=== PATIENT | female | born 1950 | race Caucasian/White ===

== ENCOUNTER 2024-07-11 13:03 | Inpatient (IN) | payer MEDICARE, OTHER, SELFPAY ==
[2024-07-11] VITALS (24 sets, daily range): BP systolic 97–148; BP diastolic 53–75; PULSE 56–74; TEMP 36.6–36.7; O2SAT 82–100; BMI 19.7; BMI 18.4
--- NOTE | 2024-07-11 13:28 | XR_ITS ---
[address] [address] Patient Name: LIZETH DAY MRN: [id number] date: 1950 Sex: F Assigned Patient Location: ER Current Patient Location: ER Accession/Order Number: [id number] Exam Date: 07/11/2024 14:23 Report Date: 07/11/2024 15:38 At the request of: OLIVIA GROSS Procedure: XR elbow RT min 3V PROCEDURE: XR elbow RT min 3V COMPARISON: None. HISTORY: fall FINDINGS: BONES:Acute fracture of the olecranon process of the proximal ulna with displacement up to 1.5 cm. SOFT TISSUES:Extensive soft tissue swelling EFFUSION:None visible. OTHER: Negative. XR/XR elbow RT min 3V IMPRESSION: Acute displaced fracture of the olecranon process Electronically authenticated by: RADHA WHITE Date: 07/11/2024 15:38
--- NOTE | 2024-07-11 13:28 | CT_ITS ---
The [address] [address] Patient Name: LIZETH DAY MRN: [id number] date: 1950 Sex: F Assigned Patient Location: ER Current Patient Location: ER Accession/Order Number: [id number] Exam Date: 07/11/2024 14:23 Report Date: 07/11/2024 15:06 At the request of: OLIVIA GROSS Procedure: CT pelvis wo con Exam Type: CT PELVIS Exam Date and Time: 07/11/2024 2:23 PM EST Indication: 74 years old Female with pain following trauma Comparison: Radiograph same date, prior CT scan 11/20/2022 TECHNIQUE: Axial CT images of the pelvic were obtained without intravenous contrast. Coronal and sagittal reformatted images were obtained. Dose reduction techniques were achieved by using automated exposure control and/or adjustment of mA and/or kV according to patient size and/or use of iterative reconstruction technique. FINDINGS: The bones are diffusely osteopenic, which limits detection of subtle nondisplaced fracture. There is an acute nondisplaced comminuted right acetabular fracture with intra-articular extension and involving the anterior column. The fracture dissipates inferiorly into the right superior pubic ramus. No significant cortical step off. No other acute displaced fracture is evident. There is linear sclerosis identified within the left iliac wing as well as the left pubic symphysis, these could potentially reflect fibrous dysplasia or stress response or remote trauma. The pubic symphysis and sacroiliac joints appear congruent. There is a chronic appearing sacral fracture at the S4 segment. Chronic L5 compression fracture with prior vertebroplasty. Mild bilateral hip osteoarthritis. Limited evaluation of the pelvic viscera is without acute or suspicious abnormality. CT/CT pelvis wo con IMPRESSION: 1. Acute comminuted nondisplaced right acetabular fracture extending inferiorly into the superior pubic ramus 2. Chronic fracture deformity of the sacrum at the S4 segment. 3. Linear sclerosis involving the left superior pubic ramus and left iliac wing could reflect changes of remote trauma, fibrous dysplasia or less likely stress response. Electronically authenticated by: TATE LEY Date: 07/11/2024 15:06
--- NOTE | 2024-07-11 13:28 | CT_ITS ---
The [address] [address] Patient Name: LIZETH DAY MRN: [id number] date: 1950 Sex: F Assigned Patient Location: ER Current Patient Location: ER Accession/Order Number: [id number] Exam Date: 07/11/2024 14:23 Report Date: 07/11/2024 14:56 At the request of: OLIVIA GROSS Procedure: CT cervical spine wo con EXAM: CT head/brain wo con, CT cervical spine wo con HISTORY: fall, syncope COMPARISON: CT head 09/23/2012. TECHNIQUE: Axial noncontrast CT imaging of the head and cervical spine was performed with coronal and sagittal reformats FINDINGS: CT head Calvarium/skull base: No evidence of acute fracture or destructive lesion. Paranasal sinuses: No air fluid levels. Brain: No acute intracranial hemorrhage. No acute large vascular territory infarct. No mass lesion or mass effect. No hydrocephalus. CT cervical spine Alignment: Slight reversal of normal cervical lordosis, degenerative in nature. Vertebrae: Vertebral body heights are maintained. No fracture. Probable vertebral body hemangioma involving C7. Craniocervical junction: No focal abnormality. Degenerative changes: Bilaterally mild degenerative changes greater involving the lower cervical spine with associated disc height loss and anterior osteophytic spurring. There is advanced bilateral uncovertebral arthropathy at C5-C6 and moderate uncovertebral arthropathy at C6-C7. There is associated advanced bilateral foraminal stenosis at C5-C6. Small posterior disc osteophytic complexes are present with mild canal stenosis. Additional Comments: Visualized portions of the upper lungs are clear. Vascular sclerosis. CT/CT cervical spine wo con IMPRESSION: 1. No acute intracranial process. 2. No acute fracture or malalignment of the cervical spine. Electronically authenticated by: PATI LINK Date: 07/11/2024 14:56
--- NOTE | 2024-07-11 13:28 | CT_ITS ---
The [address] [address] Patient Name: LIZETH DAY MRN: [id number] date: 1950 Sex: F Assigned Patient Location: ER Current Patient Location: ER Accession/Order Number: [id number] Exam Date: 07/11/2024 14:23 Report Date: 07/11/2024 14:56 At the request of: OLIVIA GROSS Procedure: CT head/brain wo con EXAM: CT head/brain wo con, CT cervical spine wo con HISTORY: fall, syncope COMPARISON: CT head 09/23/2012. TECHNIQUE: Axial noncontrast CT imaging of the head and cervical spine was performed with coronal and sagittal reformats FINDINGS: CT head Calvarium/skull base: No evidence of acute fracture or destructive lesion. Paranasal sinuses: No air fluid levels. Brain: No acute intracranial hemorrhage. No acute large vascular territory infarct. No mass lesion or mass effect. No hydrocephalus. CT cervical spine Alignment: Slight reversal of normal cervical lordosis, degenerative in nature. Vertebrae: Vertebral body heights are maintained. No fracture. Probable vertebral body hemangioma involving C7. Craniocervical junction: No focal abnormality. Degenerative changes: Bilaterally mild degenerative changes greater involving the lower cervical spine with associated disc height loss and anterior osteophytic spurring. There is advanced bilateral uncovertebral arthropathy at C5-C6 and moderate uncovertebral arthropathy at C6-C7. There is associated advanced bilateral foraminal stenosis at C5-C6. Small posterior disc osteophytic complexes are present with mild canal stenosis. Additional Comments: Visualized portions of the upper lungs are clear. Vascular sclerosis. CT/CT head/brain wo con IMPRESSION: 1. No acute intracranial process. 2. No acute fracture or malalignment of the cervical spine. Electronically authenticated by: PATI LINK Date: 07/11/2024 14:56
--- NOTE | 2024-07-11 13:28 | ECG_ITS ---
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
--- NOTE | 2024-07-11 13:44 | ED_ITS ---
HPI HPI - General Adult General Chief complaint: Extremity Injury, Lower Stated complaint: FALL Time Seen by Provider: 07/11/24 13:19 Source: patient Mode of arrival: Wheelchair History of Present Illness HPI narrative: Patient is a 74-year-old female who presents to the emergency department with her after a fall near her home in [place] where she is a resident. She states that she slipped outside of her home onto her right hip and arm. She complains of significant pain and swelling to the right elbow. She does not take blood thinners. She is right-hand dominant. She does not believe she hit her head. She states after her stood her up, she was able to walk a block home to her residence. She reports right hip pain. She states after she stood up and ambulated, she passed out, and then had another syncopal episode when she got home. She had no additional injuries from the syncopal episode. She did not feel dizzy prior to falling and does not feel dizzy now. She has not had any upper respiratory illness, chest pain, shortness of breath. No medications taken for pain prior to arrival Related Data Home Medications ?Medication ?Instructions ?Recorded ?Confirmed sertraline 100 mg tablet mg 07/11/24 simvastatin 20 mg tablet mg 07/11/24 Allergies Allergy/AdvReac Type Severity Reaction Status Date / Time No Known Drug Allergies Allergy Verified 07/11/24 13:16 Opioid HPI Opioid Management Most Recent Opioid Data: Last [facility] Pain Assessment 07/11/24 15:32 Review of Systems ROS Constitutional Denies: fever or chills Ears, nose, mouth, and throat Denies: throat pain or nasal congestion Cardiovascular Denies: chest pain Respiratory Denies: shortness of breath or cough Gastrointestinal Denies: nausea or vomiting Musculoskeletal Reports: extremity pain, extremity swelling, joint pain and limited range of motion; Denies: back pain or neck pain Integumentary/Breast Denies: rash Neurological Denies: numbness in extremities or weakness in extremities Hematologic/Lymphatic Denies: easy bruising or easy bleeding PFSH PFSH Social History Little interest or pleasure in doing things: not at all Feeling down, depressed, or hopeless: not at all Exam Narrative Exam Narrative: Gen.: Awake, alert, in no distress Head: Normocephalic, atraumatic ENT: Moist mucous membranes, C-spine nontender with no facial or dental injury Respiratory: No respiratory distress, lungs clear bilaterally Cardio: Regular rate and rhythm Gastrointestinal: Abdomen is soft, nondistended and nontender to palpation; pelvis is stable and hips are nontender Extremities: Tenderness and swelling over the right proximal forearm just distal to the right elbow joint with some tenderness and swelling of the posterior olecranon of the right elbow. Limited flexion and extension at the elbow. No tenderness of the distal forearm, wrist or hand. 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 Patient is able to move the fingers of the right hand, no evidence of nerve deficit. No tenderness of the right proximal humerus or shoulder. Diffuse tenderness of the right lateral hip and proximal thigh. No bony tenderness of the right knee, lower leg or foot. Psych: Normal mood and affect Neuro: No focal neuro deficit Skin: Warm, dry, intact Constitutional Vital Signs, click to edit/add: Last Vital Signs Temp 98.1 F 07/11/24 13:16 Pulse 07/11/24 13:16 Resp 16 07/11/24 13:16 BP 141/75 07/11/24 14:13 Pulse Ox 95 07/11/24 14:15 O2 Del Method Room Air 07/11/24 14:15 Course Vital Signs Vital signs: Vital Signs Temperature 98.1 F 07/11/24 13:16 Pulse Rate 07/11/24 13:16 Respiratory Rate 16 07/11/24 13:16 Blood Pressure 131/59 07/11/24 13:16 Pulse Oximetry 98 07/11/24 13:16 Oxygen Delivery Method Room Air 07/11/24 13:16 Temperature 98.1 F 07/11/24 13:16 Pulse Rate 69 07/11/24 13:16 Respiratory Rate 16 07/11/24 13:16 Blood Pressure 141/75 07/11/24 14:13 Pulse Oximetry 95 07/11/24 14:15 Oxygen Delivery Method Room Air 07/11/24 14:15 Medical Decision Making MDM Narrative Medical decision making narrative: Patient was medicated with IV fentanyl and Zofran for pain control as well as IV Norflex. She is resting more comfortably and is hemodynamically stable with stable vital signs. Due to her syncopal episode at the time of the fall, she had an EKG, lab studies including cardiac enzymes and coagulation studies. Her EKG shows normal sinus rhythm, she has no complaints of dizziness or chest pain in the emergency department. Her workup is otherwise unremarkable. Additional pain medication given, CTs of the head and C-spine are unremarkable. X-rays of the right elbow show the patient has a fracture of the olecranon, CT of the pelvis shows the patient has an acute comminuted nondisplaced fracture of the acetabulum extending into the superior pubic ramus. I discussed this with Dr. Mujica for orthopedics who reviewed the x-rays of the elbow and feels the patient should have surgery for her right elbow, he can do this procedure tomorrow and the patient will be admitted to the hospitalist, Dr. Morrison for further evaluation and treatment. Patient and are in agreement with treatment plan, patient is not anticoagulated, I relayed to hospitalist that orthopedics prefers that the patient not be given any blood thinners overnight. Her ring was removed from her right hand prior to splinting with a posterior splint of the right upper extremity. Patient is neurovascularly intact at time of admission, Montalvo catheter placed for comfort. SUPERVISED APC VISIT, PHYSICIAN ATTESTATION: Based on the medical record the care appears appropriate. ? Medical Records Medical records reviewed: Yes I reviewed the patient's medical records Lab Data Lab results reviewed: Yes I reviewed the patient's lab results Labs: Lab Results 07/11/24 Range/Units 13:50 WBC 8.3 (4.0-11.0) 10^3/uL RBC 4.61 (4.20-5.40) 10^6/uL Hgb 12.9 (12.0-16.0) g/dL Hct 40.0 (36.0-48.0) % MCV 86.8 (81.0-99.0) fL MCH 28.0 (26.7-34.0) pg MCHC 32.3 (29.9-35.2) g/dL RDW 13.9 (11.0-15.0) % Plt Count 188 (150-450) 10^3/uL MPV 10.5 (9.5-13.5) fL Seg Neuts % (Manual) 86.0 H (43.0-75.0) Band Neutrophils % 2.0 (0-5) % Lymphocytes % (Manual) 10.0 L (20.5-60.0) % Monocytes % (Manual) 2.0 (1.7-12.0) % Eosinophils % (Manual) 0.0 L (0.9-7.0) % Basophils % (Manual) 0.0 L (0.2-2.0) % Neutrophils # (Manual) 7.13 H (1.4-6.5) 10^3/uL Band Neutrophils # 0.2 (0.0-0.3) 10^3/uL Lymphocytes # (Manual) 0.83 L (1.20-3.80) 10^3/uL Monocytes # (Manual) 0.16 L (0.30-0.80) 10^3/uL Eosinophils # (Manual) 0.00 (0.00-0.70) 10^3/uL Basophils # (Manual) 0.00 (0.00-0.10) 10^3/uL PT 10.9 (9.0-11.6) sec INR 1.03 Sodium 137 (136-145) mmol/L Potassium 4.0 (3.5-5.1) mmol/L Chloride 102 (98-107) mmol/L Carbon Dioxide 27.4 (21.0-32.0) mmol/L Anion Gap 11.6 BUN 16.0 (7.0-18.0) mg/dL Creatinine 0.85 (0.55-1.02) mg/dL Est GFR ( Amer) >60 (>=60 mL/min/1.73m^2) Est GFR (Non-Af Amer) >60 (>=60 mL/min/1.73m^2) BUN/Creatinine Ratio 18.8 Glucose 94 (74-106) mg/dL Calcium 8.9 (8.5-10.1) mg/dL Troponin I High Sens 5.1 (4.0-51.3) pg/mL Imaging Data CT scan - head: Attestation: I have reviewed the pertinent imaging results. Radiologist's impression: ITS Impressions Cervical Spine CT 07/11/24 13:28 IMPRESSION: 1. No acute intracranial process. 2. No acute fracture or malalignment of the cervical spine. Electronically authenticated by: PATI LINK Date: 07/11/2024 14:56 Elbow X-Ray 07/11/24 13:28 IMPRESSION: Acute displaced fracture of the olecranon process Electronically authenticated by: RADHA WHITE Date: 07/11/2024 15:[address] 07/11/24 13:28 IMPRESSION: 1. No acute intracranial process. 2. No acute fracture or malalignment of the cervical spine. Electronically authenticated by: PATI LINK Date: 07/11/2024 14:[address] 07/11/24 13:28 IMPRESSION: 1. Acute comminuted nondisplaced right acetabular fracture extending inferiorly into the superior pubic ramus 2. Chronic fracture deformity of the sacrum at the S4 segment. 3. Linear sclerosis involving the left superior pubic ramus and left iliac wing could reflect changes of remote trauma, fibrous dysplasia or less likely stress response. Electronically authenticated by: TATE LEY Date: 07/11/2024 15:06 Femur X-Ray 07/11/24 13:44 IMPRESSION: No acute fracture Electronically authenticated by: RADHA WHITE Date: 07/11/2024 15:12 ECG Data Attestation: I personally reviewed and interpreted this ECG as follows: (Normal sinus rhythm at a rate of 63 with sinus arrhythmia, no acute ST elevation or ectopy. EKG reviewed by attending physician) Discharge Plan Discharge Chief Complaint: Extremity Injury, Lower Clinical Impression: Fall, Fracture of right olecranon process, Closed right acetabular fracture, Syncope Patient Disposition: Admitted As Inpatient Time of Disposition Decision: 16:09 Condition: Good Prescriptions / Home Meds: No Action sertraline 100 mg tablet simvastatin 20 mg tablet Print Language: Egyptian Referrals: YULISSA HOOKS [Primary Care Provider] - 1 week
--- NOTE | 2024-07-11 13:44 | XR_ITS ---
The [address] [address] Patient Name: LIZETH DAY MRN: [id number] date: 1950 Sex: F Assigned Patient Location: ER Current Patient Location: ER Accession/Order Number: [id number] Exam Date: 07/11/2024 14:23 Report Date: 07/11/2024 15:12 At the request of: OLIVIA GROSS Procedure: XR femur RT 2V PROCEDURE: XR femur RT 2V COMPARISON: None. HISTORY: fall FINDINGS: BONES:No fracture, acute abnormality, or significant arthropathy. SOFT TISSUES:Negative. No visible soft tissue swelling. EFFUSION:None visible. OTHER: Negative. XR/XR femur RT 2V IMPRESSION: No acute fracture Electronically authenticated by: RADHA WHITE Date: 07/11/2024 15:12
[2024-07-11] MEDS: FENTANYL CITRATE/PF 100 MCG/2 ML VIAL 75 MCG IV (14:05)
[2024-07-11] MEDS: ONDANSETRON PF 4 MG/2 ML VIAL IV (14:07)
[2024-07-11] MEDS: ORPHENADRINE 60 MG/ 2 ML VIAL IV (14:07)
[2024-07-11 14:22] LABS: Hemoglobin 12.9 g/dL (12.0-16.0); Mean Corpuscular HGB Conc 32.3 g/dL (29.9-35.2); Mean Corpuscular Volume 86.8 fL (81.0-99.0); Mean Platelet Volume 10.5 fL (9.5-13.5); Platelet Count 188 10^3/uL (150-450); Red Blood Count 4.61 10^6/uL (4.20-5.40); Red Cell Distribution Width 13.9 % (11.0-15.0); White Blood Count 8.3 10^3/uL (4.0-11.0)
[2024-07-11 14:36] LABS: INR 1.03; Prothrombin Time 10.9 sec (9.0-11.6)
[2024-07-11 14:52] LABS: Anion Gap 11.6; BUN Creatinine Ratio 18.8; Calcium 8.9 mg/dL (8.5-10.1); Carbon Dioxide 27.4 mmol/L (21.0-32.0); Chloride 102 mmol/L (98-107); Estimated GFR (African America >60 (>=60 mL/min/1.73m^2); Estimated GFR (Non-African Ame >60 (>=60 mL/min/1.73m^2); Glucose 94 mg/dL (74-106); Sodium 137 mmol/L (136-145); Troponin I High Sensitivity 5.1 pg/mL (4.0-51.3)
[2024-07-11 14:59] LABS: Band Neutrophils Absolute 0.2 10^3/uL (0.0-0.3); Lymphocytes Absolute Manual 0.83 10^3/uL (1.20-3.80); Monocytes Absolute Manual 0.16 10^3/uL (0.30-0.80); Segmented Neut Absolute Manual 7.13 10^3/uL (1.4-6.5)
[2024-07-11] MEDS: HYDROMORPHONE HCL 0.5 MG/0.5 ML SYRINGE IV (15:32)
--- NOTE | 2024-07-11 16:02 | XR_ITS ---
The [address] [address] Patient Name: LIZETH DAY MRN: [id number] date: 1950 Sex: F Assigned Patient Location: ER Current Patient Location: MS Accession/Order Number: [id number] Exam Date: 07/11/2024 16:27 Report Date: 07/11/2024 20:56 At the request of: OLIVIA GROSS Procedure: XR chest 1V EXAM: XR chest 1V HISTORY: Pre-op COMPARISON: None. TECHNIQUE: AP chest x-ray. FINDINGS: Cardiac size appears within normal limits. Trachea is midline. No mediastinal widening. Calcific nodule in the left upper lobe. No airspace consolidation, pneumothorax or effusion. Multiple healed right rib fracture deformities are noted. XR/XR chest 1V IMPRESSION: No acute cardiopulmonary processes identified. Electronically authenticated by: BRYAN FRAIRE Date: 07/11/2024 20:56
--- NOTE | 2024-07-11 16:33 | PC.NURSE ---
Right elbow swollen and ecchymotic. God radial pulse. ice and elevation
--- NOTE | 2024-07-11 17:58 | P.HP_ITS ---
HPI H&P: HPI History of Present Illness Chief complaint: FALL RT OLECRANON FRACTURE RT ACETABULAR FRACTURE Narrative: Patient presented to emergency room after 2 falls, she fell and hurt her arm, then walking through her house had increasing her pain may have had a lightheaded spell at that time did not lose consciousness that she is certain of, she thinks the reaction was more to the increase in her pain. She presented emergency room and found to have acetabular fracture nondisplaced and olecranon fracture that will require surgical intervention I saw patient up in the medical surgical floor, resting comfortably in bed, no significant pain at the time. She does not have a significant past medical history other than hypercholesterolemia and depression, no history of heart issues in the past no strokes in the past, did have a fracture of her left arm in the past without difficulty Opioid HPI Opioid Management Most Recent Pain and Opioid Data: Last Pain Scale 6 07/11/24 18:00 07/11/24 Last Pain Assessment 07/11/24 18:00 Last MAR Pain Assessment 07/11/24 15:32 Last ORT Total Score 1 07/11/24 17:52 07/11/24 Last ORT Risk Category Low Risk 07/11/24 17:52 07/11/24 PFSH PFS Medical History (Updated 07/11/24 @ 19:31 by Sandrine York RN) Hyperlipidemia ?E78.5 - Hyperlipidemia, unspecified (ICD-10) Osteoarthritis ?M19.90 - Unspecified osteoarthritis, unspecified site (ICD-10) Depression ?F32.A - Depression, unspecified (ICD-10) Surgical History (Updated 07/11/24 @ 19:31 by Sandrine York RN) H/O kyphoplasty ?Z98.890 - Other specified postprocedural states (ICD-10) Family History (Updated 07/11/24 @ 18:04 by Sandrine York RN) Father Family history of cancer Family history of hypertension Grandmother Family history of diabetes mellitus Social History (Updated 07/11/24 @ 18:04 by Sandrine York RN) Within the past year, how often did you have a drink containing alcohol: never Score interpretation: A score less than 3 is consistent with normal alcohol consumption. Smoking status: Never smoker Non-prescribed substance use: denies use Highest level of school completed/degree received: some college, no degree Little interest or pleasure in doing things: not at all Feeling down, depressed, or hopeless: not at all Meds Home Medications and Allergies Home Medications ?Medication ?Instructions ?Recorded ?Confirmed ?Type sertraline 100 mg tablet 100 mg PO .at bedtime 07/11/24 07/11/24 History sertraline 25 mg tablet 25 mg PO .at bedtime 07/11/24 07/11/24 History simvastatin 20 mg tablet 20 mg PO .at bedtime 07/11/24 07/11/24 History Allergies Allergy/AdvReac Type Severity Reaction Status Date / Time No Known Drug Allergies Allergy Verified 07/11/24 13:16 Exam Constitutional Vital Signs, click to edit/add: Last Vital Signs Temp 98.1 F 07/11/24 13:16 Pulse 70 07/11/24 17:20 Resp 22 H 07/11/24 17:20 BP 134/66 07/11/24 15:18 Pulse Ox 97 07/11/24 17:20 O2 Del Method Room Air 07/11/24 14:15 Documenting provider has reviewed patient's vital signs: yes Common normals: no apparent distress, average body habitus, oriented x3, no limitations, healthy appearing, alert and well nourished Chest Common normals: inspection of chest normal Respiratory Common normals: normal respiratory effort and no retractions Cardio Common normals: regular rate and regular rhythm GI Common normals: Normal to inspection, nondistended, normoactive bowel sounds present Extremity Common normals: abnormal to inspection (Splint on right arm) Results Labs Labs: Short CBC 07/11/24 Range/Units 13:50 WBC 8.3 (4.0-11.0) 10^3/uL Hgb 12.9 (12.0-16.0) g/dL Hct 40.0 (36.0-48.0) % Plt Count 188 (150-450) 10^3/uL BMP 07/11/24 13:50 Sodium 137 Potassium 4.0 Chloride 102 Carbon Dioxide 27.4 BUN 16.0 Creatinine 0.85 Glucose 94 Calcium 8.9 Assessment and Plan Assessment and Plan (1) Fracture of right olecranon process: (2) Closed right acetabular fracture: (3) Syncope: Plan Admission findings: Patient status post fall and near syncopal episode, this is resulted in olecranon fracture and a acetabular fracture-surgical repair needed for the olecranon fracture Olecranon fracture and acetabular fracture-plan per orthopedics Near syncopal episode, she does not feel that she completely lost consciousness, she felt it was due to the severity of the onset of her pain and she was getting into her house, she feels like the low back pain was much increased after that fall, will monitor patient on telemetry Hypercholesterolemia continue with home medications Depression-continue with home medications Admission status: Syncopal episode, may require monitoring, as well as surgical intervention for olecranon fracture. For 2 midnights, inpatient status. Urinary Catheter Management Urinary Catheter Management Urethral: Cath placed during this visit: yes Urethral indwelling: No Insertion date: 07/11/24 Insertion time: 16:20
[2024-07-11 20:24] LABS: Alanine Aminotransferase 45 U/L (14-59); Albumin Globulin Ratio 1.2; Albumin Level 3.8 g/dL (3.4-5.0); Alkaline Phosphatase 52 U/L (46-116); Aspartate Amino Transferase 34 U/L (15-37); Bilirubin Direct 0.1 mg/dL (0.0-0.2); Bilirubin Total 0.2 mg/dL (0.2-1.0); Globulin 3.3 g/dL; Total Protein 7.1 g/dL (6.4-8.2)
[2024-07-11] MEDS: ACETAMINOPHEN 500 MG TABLET 1000 MG PO (22:29)
[2024-07-11] MEDS: SERTRALINE HCL 50 MG TABLET 25 MG PO (22:29)
[2024-07-11] MEDS: ATORVASTATIN CALCIUM 10 MG TABLET PO (22:30)
[2024-07-11] MEDS: LACTATED RINGER'S SOLUTION 1,000 ML 50 ML IV (22:30)
[2024-07-11] MEDS: SERTRALINE HCL 100 MG TABLET PO (22:30)
[2024-07-12] VITALS (27 sets, daily range): BP systolic 108–154; BP diastolic 62–81; PULSE 49–77; TEMP 36.4–36.8; O2SAT 93–97
[2024-07-12] MEDS: ACETAMINOPHEN 500 MG TABLET 1000 MG PO ×2 (04:34→23:47)
[2024-07-12 06:14] LABS: Basophils Percent Auto 0.3 % (0.2-2.0); Eosinophils Percent Auto 0.3 % (0.9-7.0); Hematocrit 38.2 % (36.0-48.0); Hemoglobin 12.3 g/dL (12.0-16.0); Immature Granulocytes Abs Auto 0.01 10^3/uL (0.00-0.03); Immature Granulocytes Pct Auto 0.2 % (0.0-0.5); Lymphocytes Absolute Auto 0.9 10^3/uL (1.2-3.8); Mean Corpuscular HGB Conc 32.2 g/dL (29.9-35.2); Mean Corpuscular Hemoglobin 27.9 pg (26.7-34.0); Mean Corpuscular Volume 86.6 fL (81.0-99.0); Mean Platelet Volume 10.5 fL (9.5-13.5); Monocytes Absolute Auto 0.5 10^3/uL (0.3-0.8); Monocytes Percent Auto 7.6 % (1.7-12.0); Neutrophils Absolute Auto 4.7 10^3/uL (1.4-6.5); Neutrophils Percent Auto 77.6 % (43.0-75.0); Platelet Count 145 10^3/uL (150-450); Red Blood Count 4.41 10^6/uL (4.20-5.40); Red Cell Distribution Width 14.2 % (11.0-15.0); White Blood Count 6.1 10^3/uL (4.0-11.0)
[2024-07-12 06:24] LABS: Anion Gap 8.8; BUN Creatinine Ratio 20.9; Calcium 8.5 mg/dL (8.5-10.1); Chloride 102 mmol/L (98-107); Estimated GFR (African America >60 (>=60 mL/min/1.73m^2); Estimated GFR (Non-African Ame >60 (>=60 mL/min/1.73m^2); Glucose 99 mg/dL (74-106); Potassium 3.8 mmol/L (3.5-5.1); Sodium 137 mmol/L (136-145)
--- NOTE | 2024-07-12 09:10 | CM.NOTE ---
Rounds made with Dr. Morrison. Dr. Morrison discussed labs, plans for OR today. Also discussed NWB status. Selena verbalized understanding and stated she has 16 steps in house and bedroom is upstairs and is concerned about going home. Explained PT/OT will evaluate to help determine needs. If SNF recommended, Selena would like to go to [place]. No discharge planned today.
--- NOTE | 2024-07-12 09:23 | SWNOTE1 ---
Important Message from Medicare reviewed and discussed with patient. Pt. verbalized understanding and signed the form. Original given to patient and copy placed in patient?s chart.
--- NOTE | 2024-07-12 09:27 | SWNOTE1 ---
YASMIN met with pt to discuss dc needs. Pt will need SNF at discharge and she would like to go to [facility] since she takes [facility] in to the facility. YASMIN did explain Medicare to pt and that SW will check in to [facility] to see if they have beds. Pt in agreement. YASMIN sent email to Ranjith at [facility], waiting to hear back.
--- NOTE | 2024-07-12 09:59 | SWNOTE1 ---
YASMIN called Guadalupe at [facility] and they do have openings. Referral sent to [facility]. Referral included face sheet, ED note, H&P, provider notes, case management report, nursing notes, diagnostic imaging, med list, and PT/OT notes.
--- NOTE | 2024-07-12 10:31 | P.PN_ITS ---
Progress Note: Subjective Subjective Interval history: No this morning. Denies any pain In her arm, does have some back pain though Exam Constitutional Vital Signs, click to edit/add: Last Vital Signs Temp 98.3 F 07/12/24 09:29 Pulse 68 07/12/24 09:56 Resp 18 07/12/24 09:29 BP 117/70 07/12/24 09:29 Pulse Ox 97 07/12/24 09:29 O2 Del Method Room Air 07/12/24 09:29 Documenting provider has reviewed patient's vital signs: yes Common normals: no apparent distress, average body habitus, oriented x3, no santillan itations, healthy appearing, alert and well nourished Chest Common normals: inspection of chest normal Respiratory Common normals: normal respiratory effort and no retractions Cardio Common normals: regular rate and regular rhythm GI Common normals: Normal to inspection, nondistended, normoactive bowel sounds present Extremity Common normals: abnormal to inspection (Splint on right arm) Progress Note: Objective Labs Labs: Short CBC 07/11/24 07/12/24 Range/Units 13:50 05:44 WBC 8.3 6.1 (4.0-11.0) 10^3/uL Hgb 12.9 12.3 (12.0-16.0) g/dL Hct 40.0 38.2 (36.0-48.0) % Plt Count 188 145 L (150-450) 10^3/uL BMP 07/11/24 07/12/24 13:50 05:44 Sodium 137 137 Potassium 4.0 3.8 Chloride 102 102 Carbon Dioxide 27.4 30.0 BUN 16.0 18.0 Creatinine 0.85 0.86 Glucose 94 99 Calcium 8.9 8.5 Liver Function 07/11/24 Range/Units 13:50 Total Bilirubin 0.2 (0.2-1.0) mg/dL Direct Bilirubin 0.1 (0.0-0.2) mg/dL AST 34 (15-37) U/L ALT 45 (14-59) U/L Alkaline Phosphatase 52 (46-116) U/L Albumin 3.8 (3.4-5.0) g/dL Progress Note: A&P Assessment and Plan (1) Fracture of right olecranon process: (2) Closed right acetabular fracture: (3) Syncope: Plan Admission findings: Patient status post fall and near syncopal episode, this is resulted in olecranon fracture and a acetabular fracture-surgical repair needed for the olecranon fracture Olecranon fracture and acetabular fracture-plan per orthopedics Near syncopal episode, she does not feel that she completely lost consciousness, she felt it was due to the severity of the onset of her pain and she was getting into her house, she feels like the low back pain was much increased after that fall, will monitor patient on telemetry, no significant changes on telemetry at this time Thrombocytopenia-possibly related to just the fall-will monitor daily Hypercholesterolemia continue with home medications Depression-continue with home medications Admission status: Syncopal episode, may require monitoring, as well as surgical intervention for olecranon fracture. For 2 midnights, inpatient status., Patient is an excellent rehabilitation candidate require rehabilitation secondary to nonweightbearing with the acetabular fracture Urinary Catheter Management Urinary Catheter Management Urethral: Cath placed during this visit: yes Urethral indwelling: No Insertion date: 07/11/24 Insertion time: 16:20
--- NOTE | 2024-07-12 13:10 | P.ORCN_ITS ---
History of Present Illness HPI Consult date: 07/12/24 Requesting physician: Toby Morrison Chief complaint: FALL RT OLECRANON FRACTURE RT ACETABULAR FRACTURE Narrative: Selena is a 74-year-old female that presented to the ER yesterday after 2 falls from standing. The first fall she describes that she slipped on ice and fell onto her right elbow and had acute onset of pain. Her was able to help her ambulate back to her house approximately a block away when she suffered a syncopal fall when she got there and injured her right hip during this fall. Orthopedics was consulted for her displaced right olecranon fracture and nondisplaced right acetabular fracture. She was splinted to the right upper extremity in the ED and admitted for definitive management. Today she denies any paresthesias in her right upper and lower extremity. She states that her pain in her right hip has improved today. [facility] Medical History (Updated 07/11/24 @ 19:31 by Sandrine York RN) Hyperlipidemia ?E78.5 - Hyperlipidemia, unspecified (ICD-10) Osteoarthritis ?M19.90 - Unspecified osteoarthritis, unspecified site (ICD-10) Depression ?F32.A - Depression, unspecified (ICD-10) Surgical History (Updated 07/11/24 @ 19:31 by Sandrine York RN) H/O kyphoplasty ?Z98.890 - Other specified postprocedural states (ICD-10) Family History (Updated 07/11/24 @ 18:04 by Sandrine York RN) Father Family history of cancer Family history of hypertension Grandmother Family history of diabetes mellitus Social History (Updated 07/11/24 @ 18:04 by Sandrine York RN) Within the past year, how often did you have a drink containing alcohol: never Score interpretation: A score less than 3 is consistent with normal alcohol consumption. Smoking status: Never smoker Non-prescribed substance use: denies use Highest level of school completed/degree received: some college, no degree Little interest or pleasure in doing things: not at all Feeling down, depressed, or hopeless: not at all Meds Home Medications and Allergies Home Medications ?Medication ?Instructions ?Recorded ?Confirmed ?Type sertraline 100 mg tablet 100 mg PO .at bedtime 07/11/24 07/11/24 History sertraline 25 mg tablet 25 mg PO .at bedtime 07/11/24 07/11/24 History simvastatin 20 mg tablet 20 mg PO .at bedtime 07/11/24 07/11/24 History Allergies Allergy/AdvReac Type Severity Reaction Status Date / Time No Known Drug Allergies Allergy Verified 07/11/24 13:16 Exam Narrative Exam Narrative: On exam patient is in no distress, age-appropriate, alert and oriented x 3. On inspection the right upper extremity is in a long-arm splint. The right hip is without any erythema, ecchymosis, or warmth to touch. 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 2+ radial pulse palpated. Sensation intact with light touch to radial, median, and ulnar nerve distributions. Right hip and knee ROM limited secondary to pain in the hip. Positive logroll on the right. 5/5 dorsiflexion/plantarflexion bilaterally. 2+ DP pulses palpated. Sensation intact to light touch distally bilateral lower extremities. Constitutional Vital Signs, click to edit/add: Last Vital Signs Temp 98.3 F 07/12/24 09:29 Pulse 76 07/12/24 12:00 Resp 18 07/12/24 09:29 BP 117/70 07/12/24 09:29 Pulse Ox 97 07/12/24 10:44 O2 Del Method Room Air 07/12/24 10:44 Results Labs Labs: Abnormal lab results 07/11/24 07/12/24 Range/Units 13:50 05:44 Plt Count 145 L (150-450) 10^3/uL Neut % (Auto) 77.6 H (43.0-75.0) % Lymph % (Auto) 14.0 L (20.5-60.0) % Eos % (Auto) 0.3 L (0.9-7.0) % Lymph # (Auto) 0.9 L (1.2-3.8) 10^3/uL Seg Neuts % (Manual) 86.0 H (43.0-75.0) Lymphocytes % (Manual) 10.0 L (20.5-60.0) % Eosinophils % (Manual) 0.0 L (0.9-7.0) % Basophils % (Manual) 0.0 L (0.2-2.0) % Neutrophils # (Manual) 7.13 H (1.4-6.5) 10^3/uL Lymphocytes # (Manual) 0.83 L (1.20-3.80) 10^3/uL Monocytes # (Manual) 0.16 L (0.30-0.80) 10^3/uL H & H 07/11/24 07/12/24 Range/Units 13:50 05:44 Hgb 12.9 12.3 (12.0-16.0) g/dL Hct 40.0 38.2 (36.0-48.0) % Coagulation 07/11/24 Range/Units 13:50 INR 1.03 All other labs normal. Assessment and Plan Assessment and Plan (1) Fracture of right olecranon process: Assessment and Plan: Right elbow pain after fall on 07/11/2024 - X-ray right elbow reveals an acute fracture of the olecranon process of the proximal ulna with displacement up to 1.5 cm. -Open reduction and internal fixation of the right olecranon was recommended to the patient for treatment of this fracture. Risks and benefits of the surgery were discussed such as infection, bleeding, temporary or permanent nerve damage, blood clots, anesthesia complications,pneumonia, stroke, LA, loss of limb, and loss of life. I did discuss the procedure in detail and answered all of patient and 's questions and she would like to proceed with surgery. She has been n.p.o. all day and we will plan on the procedure taking place this afternoon. -Patient will be in a splint/sling and nonweightbearing to the right upper extremity postoperatively. (2) Closed right acetabular fracture: Assessment and Plan: Right hip pain after second fall from standing while taking a walk around the block yesterday X-ray of the right hip was negative for fracture, CT pelvis did reveal an acute comminuted nondisplaced right acetabular fracture extending inferiorly into the superior pubic ramus. -I discussed with patient that we will treat this nonoperatively with nonweightbearing and pain control. -PT/OT evaluation while inpatient for ambulatory aid and needs for home (3) Syncope:
--- NOTE | 2024-07-12 14:23 | PC.NURSE ---
1407- Patient pulled up in bed and repositioned with hob elevate 45 degrees. Patient placed on vital signs and O2 via nc. 1411- Final timeout completed. Site landmarked per Dr. Lombardo. 1413- Injection initiated. 1420 Block completed. Right interscalene block completed. Patient tolerated it well. See posted vital signs. 1425- to bedside.
--- NOTE | 2024-07-12 14:58 | SWNOTE1 ---
[facility] is able to accept once pt is medically stable for discharge. YASMIN completed [facility] online. YASMIN sent PT/OT from today and ortho consult to Guadalupe at [facility]. YASMIN also put fax and phone number on pt's packet for nursing once pt is stable for discharge. Pt will go to [facility].
[2024-07-12] MEDS: CEFAZOLIN SODIUM/DEXTROSE,ISO 2 GM/50 ML PIGGYBACK IV (15:09)
--- NOTE | 2024-07-12 17:00 | P.ORPRC_ITS ---
Procedure Note Date of procedure: 07/12/24 Pre-op diagnosis: Right olecranon fracture Post-op diagnosis: same as pre-op Procedure: Operative procedure: ORIF right olecranon fracture Detailed description of procedure: After informed consent was obtained the patient was brought to the operating room where general anesthetic was administered. Preoperatively regional block was placed. A well-padded proximal arm tourniquet was placed in the right arm was prepped and draped in the usual sterile fashion. There was elevated, exsanguinated, and the tourniquet was inflated to 200 mmHg. An 8 cm incision was made overlying the olecranon and proximal shaft of the uln a. This was curved laterally to avoid making the incision directly over the tip of the olecranon. Blunt dissection was carried down through soft tissue. Fracture was identified and found to be intra-articular displaced and not comminuted. The fracture site and joint were irrigated to remove hematoma and intra-articular hematoma. Fracture was reduced the pointed reduction forceps and then 2 K wires were placed to hold the fracture in position. The Synthes olecranon plate was then placed and held into position with 2 K wires. In the proximal fracture fragment 2 unicortical locking screws were placed in the standard fashion. Next in the distal fracture fragments a eccentrically drilled hole was placed in the oblong hole. This was measured and then a 3.5 locking screw was placed. Solid fixation was achieved. And nice compression of the fracture site was achieved. Next an additional 2 locking screws were placed in the distal fracture fragment and an additional 2 unicortical locking screws were placed in the proximal fracture fragment. Final x-rays revealed a reduced articular surface with appropriate implant placement and lengths. Wound was irrigated. Wound was closed in standard fashion with absorbable suture and then a nylon suture. Sterile dressing was placed. Tourniquet was deflated. A well- padded posterior fiberglass splint was placed with the elbow 45 degrees of flexion. Patient was awakened and brought to the recovery room in stable condition. There were no intraoperative or immediate postoperative complications. Anesthesia: GETA and regional Surgeon: Rob Mujica Estimated blood loss (mL): 30 Pathology: none sent Condition: stable Disposition: PACU
[2024-07-12] MEDS: SERTRALINE HCL 50 MG TABLET 25 MG PO (21:14)
[2024-07-12] MEDS: SERTRALINE HCL 100 MG TABLET PO (21:14)
[2024-07-12] MEDS: ATORVASTATIN CALCIUM 10 MG TABLET PO (21:14)
[2024-07-12 21:32] LABS: Bilirubin Urine NEGATIVE (NEGATIVE); Blood Urine SMALL (NEGATIVE); Clarity Urine CLEAR (CLEAR); Color Urine LT. YELLOW (YELLOW); Glucose Urine UA NEGATIVE (NEGATIVE); Ketones Urine NEGATIVE (NEGATIVE); Leukocyte Esterase Urine NEGATIVE (NEGATIVE); Nitrite Urine NEGATIVE (NEGATIVE); Protein Urine NEGATIVE (NEG/TRACE); Specific Gravity Urine 1.015 (1.005-1.025); Urobilinogen Urine 0.2 EU/dL (0.2-1.0)
[2024-07-12 21:46] LABS: Bacteria Urine TRACE #/HPF (NONE SEEN); Mucus Urine NONE SEEN (NONE SEEN); WBC Urine 0-2 #/HPF (NONE SEEN)
[2024-07-12 21:47] LABS: Cast Seen? NONE SEEN #/LPF (NONE SEEN); Crystals Seen? None Seen #/HPF (None Seen); Squamous Epithelial Cell Urine RARE #/LPF (NONE/RARE)
[2024-07-12] MEDS: LACTATED RINGER'S SOLUTION 1,000 ML 50 ML IV (21:53)
[2024-07-12] MEDS: CEFAZOLIN SODIUM/DEXTROSE,ISO 1 GM/50 ML PREMIX IV (22:37)
[2024-07-13] VITALS (13 sets, daily range): BP systolic 115–155; BP diastolic 57–74; PULSE 54–80; TEMP 36.6–37.7; O2SAT 93–98
[2024-07-13] MEDS: HYDROMORPHONE HCL 0.5 MG/0.5 ML SYRINGE IV ×2 (06:12→10:32)
[2024-07-13 06:28] LABS: Basophils Percent Auto 0.4 % (0.2-2.0); Eosinophils Percent Auto 0.4 % (0.9-7.0); Hematocrit 32.7 % (36.0-48.0); Hemoglobin 10.8 g/dL (12.0-16.0); Immature Granulocytes Abs Auto 0.06 10^3/uL (0.00-0.03); Immature Granulocytes Pct Auto 0.9 % (0.0-0.5); Lymphocytes Absolute Auto 1.1 10^3/uL (1.2-3.8); Lymphocytes Percent Auto 16.6 % (20.5-60.0); Mean Corpuscular Hemoglobin 28.3 pg (26.7-34.0); Mean Corpuscular Volume 85.8 fL (81.0-99.0); Mean Platelet Volume 10.6 fL (9.5-13.5); Monocytes Absolute Auto 0.5 10^3/uL (0.3-0.8); Monocytes Percent Auto 7.3 % (1.7-12.0); Neutrophils Absolute Auto 5.1 10^3/uL (1.4-6.5); Neutrophils Percent Auto 74.4 % (43.0-75.0); Platelet Count 133 10^3/uL (150-450); Red Blood Count 3.81 10^6/uL (4.20-5.40); Red Cell Distribution Width 13.9 % (11.0-15.0); White Blood Count 6.9 10^3/uL (4.0-11.0)
[2024-07-13 06:37] LABS: Anion Gap 14.1; BUN Creatinine Ratio 17.2; Calcium 7.8 mg/dL (8.5-10.1); Carbon Dioxide 25.8 mmol/L (21.0-32.0); Chloride 103 mmol/L (98-107); Estimated GFR (African America >60 (>=60 mL/min/1.73m^2); Estimated GFR (Non-African Ame >60 (>=60 mL/min/1.73m^2); Glucose 84 mg/dL (74-106); Potassium 3.9 mmol/L (3.5-5.1); Sodium 139 mmol/L (136-145)
[2024-07-13] MEDS: CEFAZOLIN SODIUM/DEXTROSE,ISO 1 GM/50 ML PREMIX IV ×2 (06:45→16:42)
--- NOTE | 2024-07-13 11:08 | PM.ORPN ---
Progress Note: A&P Assessment and Plan (1) Fracture of right olecranon process: Assessment and Plan: POD #1 right olecranon ORIF -Sensation and motor intact to the right hand/wrist -Nonweightbearing through the right upper extremity, no pushing/pulling with the hand -Elevate as much as possible -Maintain splint/sling until follow-up -Follow-up in [address] Mujica (2) Closed right acetabular fracture: Assessment and Plan: Right Nondisplaced acetabular fracture -Nonoperative treatment with nonweightbearing and pain control. -PT/OT evaluation -DVT prophylaxis - Follow up with Dr Mujica as above - Okay for discharge from Ortho standpoint Plan discussed with my Supervising Physician, Dr Mujica. (3) Syncope: Subjective Subjective Principal diagnosis: Right Olecranon Fracture and Right Acetabulum fracture Interval history: Patient is POD #1 right olecranon ORIF and also has a right acetabular fracture. Patient is doing well and states that after surgery her sensation returned to all her fingers in her right hand. Pain was controlled overnight. She has not had a physical therapy evaluation yet. Exam Narrative Exam Narrative: On exam patient is sitting up in the hospital bed, age-appropriate, alert and oriented x 3. On inspection of the right upper extremity there is a splint and Janes wrap in place that is clean dry and intact. Patient actively can make a full fist. 5/5 hand intrinsics, wrist flexion/extension. Sensation intact with light touch to all fingers and thumb. Pain with attempts at active ROM of the right hip and knee. 5/5 dorsiflexion/plantarflexion. 2+ DP pulses and radial pulses palpated bilaterally. Sensation intact distally to the bilateral lower extremities. Constitutional Vital Signs, click to edit/add: Last Vital Signs Temp 98.0 F 07/13/24 09:26 Pulse 67 07/13/24 10:00 Resp 16 07/13/24 09:26 BP 155/74 H 07/13/24 09:26 Pulse Ox 95 07/13/24 10:00 O2 Del Method Room Air 07/13/24 09:26 Urinary Catheter Management Urinary Catheter Management Urethral: Cath placed during this visit: yes Urethral indwelling: No Insertion date: 07/11/24 Insertion time: 16:20
--- NOTE | 2024-07-13 14:59 | PM.IMPN1 ---
Progress Note: A&P Assessment and Plan (1) Fracture of right olecranon process: Assessment and Plan: s/p ORIF. Added motrin and oxycodone as needed for pain control. PT/OT eval. Post op care/management as per Orthopedics. Qualifiers: Encounter type: subsequent encounter Fracture type: closed Fracture healing: with routine healing Qualified Code(s): S52.021D - Displaced fracture of olecranon process without intraarticular extension of right ulna, subsequent encounter for closed fracture with routine healing (2) Closed right acetabular fracture: Assessment and Plan: Conservative management. Pain control, PT/OT eval. Qualifiers: Encounter type: subsequent encounter Sublocation of acetabulum: unspecified portion of acetabulum Fracture alignment: nondisplaced Fracture healing: with routine healing Qualified Code(s): S32.401D - Unspecified fracture of right acetabulum, subsequent encounter for fracture with routine healing (3) Vasovagal syncope: Assessment and Plan: Likely vasovagal syncope due to pain. No sig finding on tele. Monitor. (4) Hyperlipidemia: Assessment and Plan: c/w lipitor. Qualifiers: Hyperlipidemia type: unspecified Qualified Code(s): E78.5 - Hyperlipidemia, unspecified (5) Depression: Assessment and Plan: c/w zoloft. Qualifiers: Depression Type: major depressive disorder Major depression recurrence: recurrent Active/Remission status: in full remission Qualified Code(s): F33.42 - Major depressive disorder, recurrent, in full remission Internal Medicine - PN: Subj Subjective Interval history: Seen and examined. She is requesting non narcotics for pain as she would prefer to avoid Narcotics if she can. Complaining of right arm pain. Sitting up in chair Exam Constitutional Vital Signs, click to edit/add: Last Vital Signs Temp 97.8 F 07/13/24 12:10 Pulse 70 07/13/24 12:10 Resp 16 07/13/24 12:10 BP 115/62 07/13/24 12:10 Pulse Ox 94 L 07/13/24 12:10 O2 Del Method Room Air 07/13/24 12:10 Documenting provider has reviewed patient's vital signs: yes Common normals: no apparent distress and oriented x3 General appearance: cooperative Respiratory Common normals: normal respiratory effort and clear to auscultation bilaterally Effort & inspection: able to speak in complete sentences Auscultation: clear to auscultation bilaterally Cardio Common normals: regular rate, S1 normal heart sound and S2 normal heart sound Rate: regular rate Heart sounds: S1 normal and S2 normal Extremity Common normals: no clubbing, cyanosis or edema Other: Right arm splint. Neuro Common normals: oriented x3, moves all extremities and no focal motor deficits Psych Common normals: mental status grossly normal, denies hallucinations, denies homicidal ideation and denies suicidal ideation Internal Medicine - PN: Obj Da Labs Labs: Laboratory Results - last 24 hr 07/12/24 07/13/24 20:55 05:56 WBC 6.9 RBC 3.81 L Hgb 10.8 L Hct 32.7 L MCV 85.8 MCH 28.3 MCHC 33.0 RDW 13.9 Plt Count 133 L MPV 10.6 Neut % (Auto) 74.4 Lymph % (Auto) 16.6 L [place] % (Auto) 7.3 Eos % (Auto) 0.4 L Baso % (Auto) 0.4 Neut # (Auto) 5.1 Lymph # (Auto) 1.1 L [place] # (Auto) 0.5 Eos # (Auto) 0.0 Baso # (Auto) 0.0 Abs Immat Gran (auto) 0.06 H Imm/Tot Granulo (auto) 0.9 H Sodium 139 Potassium 3.9 Chloride 103 Carbon Dioxide 25.8 Anion Gap 14.1 BUN 11.0 Creatinine 0.64 Est GFR ( Amer) >60 Est GFR (Non-Af Amer) >60 BUN/Creatinine Ratio 17.2 Glucose 84 Calcium 7.8 L Urine Color Lt. yellow Urine Clarity Clear Urine pH 6.0 Ur Specific [place] 1.015 Urine Protein Negative Urine Glucose (UA) Negative Urine Ketones Negative Urine Occult Blood Small A Urine Nitrite Negative Urine Bilirubin Negative Urine Urobilinogen 0.2 Ur Leukocyte Esterase Negative Urine RBC 5-10 A Urine WBC 0-2 A Ur Squamous Epith Cells Rare Urine Crystals None seen Urine Bacteria Trace A Urine Casts None seen Urine Mucus None seen Urinary Catheter Management Urinary Catheter Management Urethral: Cath placed during this visit: yes Urethral indwelling: No Insertion date: 07/11/24 Insertion time: 16:20
[2024-07-13] MEDS: OXYCODONE HCL 5 MG TABLET PO (16:44)
[2024-07-13] MEDS: LACTATED RINGER'S SOLUTION 1,000 ML 50 ML IV (18:01)
[2024-07-13] MEDS: ATORVASTATIN CALCIUM 10 MG TABLET PO (21:36)
[2024-07-13] MEDS: SERTRALINE HCL 100 MG TABLET PO (21:36)
[2024-07-13] MEDS: SERTRALINE HCL 50 MG TABLET 25 MG PO (21:36)
[2024-07-13] MEDS: IBUPROFEN 400 MG TABLET PO (21:38)
[2024-07-14] MEDS: ACETAMINOPHEN 500 MG TABLET 1000 MG PO ×2 (02:58→13:21)
[2024-07-14] MEDS: OXYCODONE HCL 5 MG TABLET PO ×2 (02:58→13:22)
[2024-07-14 03:10] VITALS: BP 129/76; PULSE 61; TEMP 36.8; O2SAT 93
[2024-07-14 06:33] LABS: Basophils Percent Auto 0.6 % (0.2-2.0); Eosinophils Absolute Auto 0.1 10^3/uL (0.0-0.7); Eosinophils Percent Auto 1.9 % (0.9-7.0); Hematocrit 34.7 % (36.0-48.0); Hemoglobin 11.3 g/dL (12.0-16.0); Immature Granulocytes Abs Auto 0.04 10^3/uL (0.00-0.03); Immature Granulocytes Pct Auto 0.8 % (0.0-0.5); Lymphocytes Absolute Auto 0.8 10^3/uL (1.2-3.8); Lymphocytes Percent Auto 15.5 % (20.5-60.0); Mean Corpuscular HGB Conc 32.6 g/dL (29.9-35.2); Mean Corpuscular Hemoglobin 28.2 pg (26.7-34.0); Mean Corpuscular Volume 86.5 fL (81.0-99.0); Mean Platelet Volume 10.1 fL (9.5-13.5); Monocytes Absolute Auto 0.4 10^3/uL (0.3-0.8); Monocytes Percent Auto 7.9 % (1.7-12.0); Neutrophils Absolute Auto 3.8 10^3/uL (1.4-6.5); Neutrophils Percent Auto 73.3 % (43.0-75.0); Platelet Count 122 10^3/uL (150-450); Red Blood Count 4.01 10^6/uL (4.20-5.40); Red Cell Distribution Width 14.2 % (11.0-15.0); White Blood Count 5.2 10^3/uL (4.0-11.0)
[2024-07-14 07:30] VITALS: BP 144/68; PULSE 68; TEMP 36.7; O2SAT 96
--- NOTE | 2024-07-14 10:56 | P.DS_ITS ---
DS: Providers Provider Date of admission: 07/11/24 16:07 Primary care physician: YULISSA HOOKS Admitting clinician: Toby Morrison Attending physician on admission: Toby Morrison Consults: 07/11/24 17:55 Consult to Pharmacy Routine Consulting Provider: Reason for consultation: Please [place] me when Med Rec is Updated Has provider been notified: No Occupational Therapy Eval and Treat Routine Reason for consultation: Only if needed for Rehab Has provider been notified: No Physical Therapy Eval and Treat Routine Reason for consultation: Eval and Treat Has provider been notified: No 07/13/24 10:19 Occupational Therapy Eval and Treat Routine Reason for consultation: hip fx Physical Therapy Eval and Treat Routine Reason for consultation: hip fx Attending physician on discharge: Shaikh Francy Discharging clinician: Shaikh Francy Anticipated date of discharge: 07/14/24 DS: Diagnosis Discharge Diagnosis (1) Fracture of right olecranon process: Qualifiers: Encounter type: subsequent encounter Fracture healing: with routine healing Fracture type: closed Qualified Code(s): S52.021D - Displaced fracture of olecranon process without intraarticular extension of right ulna, subsequent encounter for closed fracture with routine healing (2) Closed right acetabular fracture: Qualifiers: Encounter type: subsequent encounter Fracture alignment: nondisplaced Fracture healing: with routine healing Sublocation of acetabulum: unspecified portion of acetabulum Qualified Code(s): S32.401D - Unspecified fracture of right acetabulum, subsequent encounter for fracture with routine healing (3) Vasovagal syncope: (4) Hyperlipidemia: Qualifiers: Hyperlipidemia type: unspecified Qualified Code(s): E78.5 - Hyperlipidemia, unspecified (5) Depression: Qualifiers: Depression Type: major depressive disorder Major depression recurrence: recurrent Active/Remission status: in full remission Qualified Code(s): F33.42 - Major depressive disorder, recurrent, in full remission DS: Summary Hospital Course Hospital Course: 74-year-old female presented to the emergency department with her after a fall near her home in [place]. She slipped outside of her home onto her right hip and arm. She came to ED because of complains of significant pain and swelling to the right elbow. She stated that her stood her up after she fell, she was able to walk a block home to her residence. She reported after she stood up and ambulated, she passed out, and then had another syncopal episode when she got home. She was in her usual state of health before fall and was not feeling unwell. Work up in ED revealed right olecaranon fx and acetabular fx. She was evaluated by orthopedic surgery. She underwent ORIF for olcecranon fx and for acetabular fx, conservative/medical management was recommended. She also participated in PT/OT during admission. She is feeling well today. Her pain is controlled. She is accepted for Rehab placement and can be discharged medically. She will need f/u with PCP and Orthopedics. Status at Discharge Functional status at discharge: uses cane/walker Overall status at discharge: patient is progressing back to baseline Time Spent with Patient Time attestation: Total time spent providing and/or coordinating discharge services: Time spent: greater than 30 minutes Exam Constitutional Vital Signs, click to edit/add: Last Vital Signs Temp 98.0 F 07/14/24 07:30 Pulse 68 07/14/24 07:30 Resp 16 07/14/24 07:30 BP 144/68 H 07/14/24 07:30 Pulse Ox 96 07/14/24 07:30 O2 Del Method Room Air 07/14/24 07:30 Documenting provider has reviewed patient's vital signs: yes Common normals: no apparent distress and oriented x3 General appearance: cooperative Respiratory Common normals: normal respiratory effort and clear to auscultation bilaterally Effort & inspection: able to speak in complete sentences Auscultation: clear to auscultation bilaterally Cardio Common normals: regular rate, S1 normal heart sound and S2 normal heart sound Rate: regular rate Heart sounds: S1 normal and S2 normal Extremity Common normals: no clubbing, cyanosis or edema Other: Right arm splint. Neuro Common normals: oriented x3, moves all extremities and no focal motor deficits Psych Common normals: mental status grossly normal, denies hallucinations, denies homicidal ideation and denies suicidal ideation DS: Data Data Completed and Pending Labs on day of discharge: Labs from last 24 hours 07/14/24 06:07 WBC 5.2 RBC 4.01 L Hgb 11.3 L Hct 34.7 L MCV 86.5 MCH 28.2 MCHC 32.6 RDW 14.2 Plt Count 122 L MPV 10.1 Neut % (Auto) 73.3 Lymph % (Auto) 15.5 L [place] % (Auto) 7.9 Eos % (Auto) 1.9 Baso % (Auto) 0.6 Neut # (Auto) 3.8 Lymph # (Auto) 0.8 L [place] # (Auto) 0.4 Eos # (Auto) 0.1 Baso # (Auto) 0.0 Abs Immat Gran (auto) 0.04 H Imm/Tot Granulo (auto) 0.8 H Discharge Plan Discharge Disposition: Xfer SNF Condition: Good Discharge Medications: New oxycodone 5 mg tablet 5 mg PO Q6H PRN (Reason: pain) Qty: 10 0RF Continued sertraline 100 mg tablet 100 mg PO .at bedtime simvastatin 20 mg tablet 20 mg PO .at bedtime sertraline 25 mg tablet 25 mg PO .at bedtime 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
[2024-07-14 11:19] VITALS: BP 123/67; PULSE 70; TEMP 36.9; O2SAT 95
== END 2024-07-14 13:25 | DRG 510 ==
LOC: ER 16:28 → MS 17:28
PROVIDERS: Orthopaedic Surgery; Physician Assistant; Admitting Provider Family Medicine; Emergency Provider Emergency Medicine; PCP Internal Medicine; Visit Provider Family Medicine
PROC: 0PSK04Z Reposition Right Ulna with Internal Fixation Device, Open Approach (ICD-10-PCS; principal; 2024-07-12 14:00)
DX: S52.031A Displaced fracture of olecranon process with intraarticular extension of right ulna, initial encounter for closed fracture (principal); S32.434A Nondisplaced fracture of anterior column [iliopubic] of right acetabulum, initial encounter for closed fracture; S32.591A Other specified fracture of right pubis, initial encounter for closed fracture; R55 Syncope and collapse; E78.00 Pure hypercholesterolemia, unspecified; F33.42 Major depressive disorder, recurrent, in full remission; D75.839 Thrombocytosis, unspecified; Z79.899 Other long term (current) drug therapy; W00.0XXA Fall on same level due to ice and snow, initial encounter
CPT/HCPCS: 36415; 51702; 64415; 70450; 71045; 72125; 72192; 73080; 73552; 76000; 80048; 80076; 81001; 84484; 85007; 85025; 85027; 85610; 93005; 94667; 94668; 94761; 96374; 96375; 97161; 97165; 97530; 97535; 99285; C1713; J0690; J1100; J1171; J2250; J2360; J2371; J2405; J2704; J2795; J3010

== ENCOUNTER 2024-07-29 10:30 | Outpatient (OUT) | payer MEDICARE, OTHER, SELFPAY ==
--- NOTE | 2024-07-29 | XR_ITS ---
[address] [address] Patient Name: LIZETH DAY MRN: [id number] date: 1950 Sex: F Assigned Patient Location: Current Patient Location: Accession/Order Number: [id number] Exam Date: 07/29/2024 10:35 Report Date: 07/29/2024 23:17 At the request of: ALEXANDER CANADA Procedure: XR elbow RT min 3V EXAM: XR elbow RT min 3V HISTORY: RIGHT ELBOW PAIN COMPARISON: 07/11/2024 FINDINGS/IMPRESSION: 1. Plate and screw fixation of the proximal aspect of the ulna. Healing proximal ulnar fracture. 2. No elbow joint effusion. 3. There is subcutaneous soft tissue edema about the elbow. Electronically authenticated by: LIZ GARCIA Date: 07/29/2024 23:17
--- NOTE | 2024-07-29 | XR_ITS ---
[address] [address] Patient Name: LIZETH DAY MRN: [id number] date: 1950 Sex: F Assigned Patient Location: Current Patient Location: Accession/Order Number: [id number] Exam Date: 07/29/2024 10:35 Report Date: 07/29/2024 23:15 At the request of: ALEXANDER CANADA Procedure: XR hip RT 2V w/ pelvis EXAM: XR hip RT 2V w/ pelvis HISTORY: RIGHT HIP AND PELVIS PAIN COMPARISON: None. FINDINGS/IMPRESSION: 1. No acute fracture or dislocation. 2. Mild degeneration of the sacroiliac joints. 3. Normal alignment of the right hip joint. 4. Vertebroplasty at the L5 level. 5. Overlying bowel gas pattern is nonspecific. Normal alignment of the left hip joint. Electronically authenticated by: LIZ GARCIA Date: 07/29/2024 23:15
--- OUTSIDE RECORDS SUMMARY | 2024-07-29 10:33 | XMS_ITS | CCD ---
Author Organization [facility] Care Team Providers Care Credit Administrator Name Role Phone ARLINE TEMPLE Admitting Unavailable APLING, ARLINE Attending Unavailable TUCKER HSU Primary Care Unavailable APLING, ARLINE Consulting Unavailable Shadi, NAY Ceballos Primary Care Provider [phone] DO Neeraj Stafford Attending Provider [phone] ARLINE TEMPLE Attending Unavailable TUCKER HSU Attending Unavailable TUCKER HSU Attending Unavailable APLINGARLINE Attending Unavailable TUCKER HSU Referring Unavailable Apling, Arline Referring Unavailable Apling, Arline Attending Unavailable Apling, Arline Admitting Unavailable Tucker Hsu Primary Care Unavailable Medications Current Medications Medication Drug Class(es) Dates Sig (Normalized) Sig (Original) amoxicillin 875 mg / clavulanate 125 mg oral tablet (1 source) Penicillin-class Antibacterial Start: 06-13-2019 take 1 tablet by mouth twice daily Amoxicillin-Pot Clavulanate (Augmentin) 875-125 mg Tablet Active 1 TAB PO Twice daily June 13, 2019 12:00am Gvc-J9-Bsu50-Zinc- Suv-Lqqs-Bky (1 source) Start: 06-13-2019 take 1 tablet by mouth twice daily Nvn-S5-Ahb35-Zinc -Vvw-Slva-Bcz Active 1 TAB PO Twice daily June 13, 2019 12:00am 1 ml denosumab 60 mg/ml prefilled syringe (1 source) RANK Ligand Inhibitor Start: 06-13-2019 Denosumab (Prolia) 60 mg/mL Syringe Active 60 MG SUBCUT EVERY 6 MONTHS June 13, 2019 12:00am Ginkgo Biloba (1 source) Start: 06-13-2019 take 40 mg by mouth three times daily Ginkgo Biloba Active 40 MG PO Three times daily June 13, 2019 12:00am sertraline 100 mg oral tablet (1 source) Serotonin Reuptake Inhibitor Start: 06-13-2019 take 100 mg by mouth once daily Sertraline Active 100 MG PO Daily June 13, 2019 12:00am simvastatin 20 mg oral tablet (1 source) HMG-CoA Reductase Inhibitor Start: 06-13-2019 take 20 mg by mouth once daily in the evening Simvastatin Active 20 MG PO Every evening June 13, 2019 12:00am Problems Problem Classification Problem Date Documented Da te Episodic/Chronic Osteoporosis (5 sources) Age-related osteoporosis without current pathological fracture; Translations: [AGE-REL OSTEOPOR W/O CURR PATH FX] Onset: 11-23-2018 Chronic Results Test Name Value Interpretation Reference Range Facil ity BI MAMMOGRAM SCREENING TOMOS YNTHESIS BILATERALon 03-20-2024 BI MAMMOGRAM SCREENING TOMOSYNTHESIS BILATERAL This is a summary report. The complete report is available in the patient's medical record. If you cannot access the medical record, please contact the sending organization for a detailed fax or copy. EXAMINATION: BI MAMMOGRAM SCREENING TOMOSYNTHESIS BILATERAL CLINICAL HISTORY:yearly COMPARISON: January 03, 2023. RESULT: Density: There are scattered areas of fibroglandular density Overall appearance is stable. Typically benign calcifications. There is no suspicious mass, asymmetry, architectural distortion, or calcification IMPRESSION: BIRADS 2 - Benign Follow-up: Routine Screening Mamm Board Certified Radiologists. Accredited by the ACR and FDA. MAMMOGRAPHY IS VERY IMPORTANT TO YOUR HEALTH. THE [employer] GUIDELINES RECOMMEND THAT WOMEN 40 YEARS OF AGE AND OLDER SHOULD HAVE A MAMMOGRAM EVERY YEAR. A REMINDER LETTER WILL BE SENT AT THE APPROPRIATE TIME. THIS FACILITY UTILIZES A REMINDER SYSTEM TO ENSURE ALL PATIENTS RECEIVE REMINDER NOTIFICATIONS AT THE APPROPRIATE TIME BASED ON THE RECOMMENDATIONS OF THIS EXAM. THIS INCLUDES REMINDERS FOR ROUTINE SCREENING MAMMOGRAMS, DIAGNOSTIC MAMMOGRAMS IN WHICH THE PATIENT IS ASKED TO RETURN FOR ADDITIONAL VIEWS, OR OTHER BREAST IMAGING INTERVENTIONS WHEN APPROPRIATE. THE PATIENT WILL BE PLACED IN THE APPROPRIATE REMINDER SYSTEM INCLUDING A REMINDER AT THE APPROPRIATE TIME FOR ANY PENDING ADDITIONAL VIEWS. TRANSCRIBED BY: ELECTRONICALLY SIGNED BY: Negro Reed MD Normal Not Available Calciumon 06-14-2021 Calcium [Mass/Vol] 9.1 mg/dL Normal 8.6-10.2 Nick berger [place] [employer] Comment on above: Performed By: #### C A #### [facility] [address] [place], [place] [id number] Encounters Encounter Date Encounter Type Care Provider Facility Start: 03-21-2024 End: 03-21-2024 ambulatory TUCKER HSU Not Available Start: 02-08-2024 ambulatory Arline Medinaing Facility:[facility] Start: 01-29-2024 End: 01-29-2024 ambulatory ARLINE Mckay APLING Not Available Start: 12-18-2023 End: 12-18-2023 ambulatory TUCKER HSU Not Available Start: 07-31-2023 End: 07-31-2023 ambulatory ARLINE Mckay APLING Not Available Start: 06-08-2023 End: 06-08-2023 ambulatory TUCKER HSU Not Available Start: 05-19-2022 End: 05-19-2022 ambulatory NAY Hsu Work Phone: [facility] Work Phone: Start: 05-19-2022 End: 05-19-2022 Departed Referred NAY Hsu Work Phone: [facility] [address] [place] Start: 11-23-2018 End: 11-23-2018 Patient encounter procedure ARLINE APLING Facility:[facility] Payers Date Payer Category Payer Self-pay [id number] 2019 [employer] others) [id number] 1959 [employer] ( [employer] others) [id number] 1957 Medicare [id number] 1950 Unknown [id number] 1950 Unknown [id number] 1950 Unknown [id number] 1950 Unknown [id number] [id number] 1950 Unknown [id number] 9 1950 Unknown [id number] [id number] [employer] ( and others) [facility] [id number] [employer] ( and others) [facility] [id number] Unknown [id number] Social History Date Type Detail Facility Tobacco smoking stat [facility] Unknown if ever smoked [facility] Work Phone: Start: 1950 Sex Assigned At Female F [facility] Evaluation note Note Date & Type Note Facility Evaluation note No assessment information availa ble [facility] Work Phone: Summary Purpose Family History No Family History Records FoundNo Family History Records FoundNo Family History Records FoundNo Family History Records Found Advance Directives No Advanced Directives Records Found Advance Directive Response Recorded Date/ Time Advance Directives No June 10, 2019 5:42pm Additional Source Comments INFORMATION SOURCE (unrecogn ized section and content) DATE CREATED AUTHOR 02/16/2019 [facility] DATE CREATED AUTHOR AUTHOR'S ORGANIZ ATION 06/16/2021 [facility] DATE CREATED AUTHOR AUTHOR'S ORGANIZ ATION 03/25/2024 [facility] EPIC DATE CREATED AUTHOR AUTHOR'S ORGANIZ ATION 07/21/2024 [facility] Care Teams (unrecognized sec tion and content) Team Status: Inactive Member Role Status Dates Tucker Hsu II MD Primary Care Provider Active Neeraj Stafford DO Attending Provider Active Team Status: Active Member Role Status Dates Tucker Hsu II MD Primary Care Provider Active Goals (unrecognized section and content) Goals may be documented in a n alternate section FOR RECORDS PERTAINING TO PATIENTS WHO ARE OR HAVE BEEN ENROLLED IN A CHEMICAL DEPENDENCY/SUBSTANCEABUSE PROGRAM, SOME INFORMATION MAY BE OMITTED. This clinical summary was aggregated from multiple sources. Caution should be exercised in using it in the provision of clinical care. This summary normalizes information from multiple sources, and as a consequence, information in this document may materially change the coding, format and clinical context of patient data. In addition, data may be omitted in some cases. CLINICAL DECISIONS SHOULD BE BASED ON THE PRIMARY CLINICAL RECORDS. [facility] [employer] [facility]. provides no warranty or guarantee of the accuracy or completeness of information in this document.
--- OUTSIDE RECORDS SUMMARY | 2024-08-12 16:23 | XMS_ITS | CCD ---
Author Organization [facility] Care Team Providers Care Chemical Cell Changer Name Role Phone ARLINE RIOS Admitting Unavailable ARLINE RIOS Attending TUCKER Silveira Primary Care Unavailable ARLINE RIOS Consulting NAY Silveira Primary Care Provider DO Neeraj Stafford Attending Provider Arline Rios Referring Unavailable Arilne Rios Attending Unavailable Arline Rios Admitting Unavailable Tucker Hsu Primary Care Unavailable Tucker Hsu MD Primary Care Provider Tucker Hsu MD Unavailable ARLINE RIOS Attending REGAAN Noe Attending TUCKER Silveira Attending ARLINE Sellers Attending TUCKER Silveira Referring Unavailable Medications Current Medications Medication Drug Class(es) Dates Sig (Normalized) Sig (Original) amoxicillin 875 mg / clavulanate 125 mg oral tablet (1 source) Penicillin-class Antibacterial Start: 06-13-2019 take 1 tablet by mouth twice daily Amoxicillin-Pot Clavulanate (Augmentin) 875-125 mg Tablet Active 1 TAB PO Twice daily June 13, 2019 12:00am [id number] (1 source) Start: 06-13-2019 take 1 tablet by mouth twice daily [id number] -[id number] Active 1 TAB PO Twice daily June 13, 2019 12:00am Calcium Carb-Cholecalcifer ol (CALCIUM + VITAMIN D3 PO) (7 sources) Calcium Carb-Cholecalcife rol (CALCIUM + VITAMIN D3 PO) Take by mouth Daily. Active 1 ml denosumab 60 mg/ml prefilled syringe (1 source) RANK Ligand Inhibitor Start: 06-13-2019 Denosumab (Prolia) 60 mg/mL Syringe Active 60 MG SUBCUT EVERY 6 MONTHS June 13, 2019 12:00am Ginkgo Biloba (8 sources) Start: 06-13-2019 take 40 mg by mouth three times daily Ginkgo Biloba Active 40 MG PO Three times daily June 13, 2019 12:00am Ginkgo Biloba 40 MG tablet Ginko Biloba Active Multiple Vitamin (DAILY VITAMIN PO) (7 sources) Multiple Vitamin (DAILY VITAMIN PO) Daily Vitamin Active sertraline 25 mg oral tablet (15 sources) Serotonin Reuptake Inhibitor Start: 05-08-2024 sertraline (Zoloft) 25 MG tablet Indications: Recurrent major depressive disorder, remission status unspecified (HCC) (CMS/HCC) TAKE 1 TABLET DAILY 100 tablet 3 05/08/2024 Active Start: 11-14-2023 take 1 tablet by yarely th once daily sertraline (Zoloft) 100 MG tablet Indications: Mild episode of recurrent major depressive disorder (HCC) (CMS/HCC) Take 1 tablet (100 mg) by mouth Daily 90 tablet 11/14/2023 Active Start: 06-13-2019 take 100 mg by mouth once juventino y Sertraline Active 100 MG PO Daily June 13, 2019 12:00am simvastatin 20 mg oral tablet (8 sources) HMG-CoA Reductase Inhibitor Start: 08-28-2023 simvastatin (Zocor) 20 MG tablet Indications: Sinus arrhythmia TAKE 1 TABLET DAILY IN THE EVENING 90 tablet 3 08/28/2023 Active Start: 06-13-2019 take 20 mg by mouth once daily in the evening Simvastatin Active 20 MG PO Every evening June 13, 2019 12:00am VITAMIN C, CALCIUM ASCORBATE , PO (7 sources) VITAMIN C, CALCI UM ASCORBATE, PO Vitamin C Active Problems Active Problems Problem Classification Problem Date Documented Date Episodic/Chronic Disorders of lipid metabolism (14 sources) Mixed hyperlipidemia; Translations: [Mixed hyperlipidemia] Onset: 08-17-2016 Resolved: 12-18-2023 12-01-2022 Chronic Fracture of neck of femur (hip) (4 sources) Closed fracture of hip; Translations: [Fracture of unspecified part of neck of right femur, sequela] Onset: 08-06-2024 08-06-2024 Episodic Fracture of upper limb (4 sources) Closed fracture of right elbow; Translations: [Unspecified fracture of lower end of right humerus, sequela] Onset: 08-06-2024 08-06-2024 Episodic Mood disorders (20 sources) Recurrent major depression; Translations: [Major depressive disorder, recurrent, unspecified] Onset: 08-17-2016 Resolved: 06-08-2023 12-01-2022 Chronic Nutritional deficiencies (4 sources) Deficiency of macronutrients; Translations: [Mild protein-calorie malnutrition] Onset: 08-06-2024 08-06-2024 Chronic Osteoporosis (20 sources) Age-related osteoporosis without current pathological fracture; Translations: [Senile osteoporosis] Onset: 08-17-2016 12-01-2022 Chronic Other liver diseases (9 sources) ALT (SGPT) level raised; Translations: [Elevated alanine aminotransferase (ALT) level] Onset: 08-17-2016 12-07-2022 Episodic Spondylosis; intervertebral disc disorders; other back problems (7 sources) Degeneration of lumbosacral intervertebral disc; Translations: [Degeneration of intervertebral disc of lumbosacral region] Onset: 08-17-2016 12-07-2022 Chronic Past or Other Problems Problem Classification Problem Date Documented Date Episodic/Chronic Anal and rectal conditions (7 sources) Hyperplastic polyp of large intestine; Translations: [Rectal polyp] Onset: 01-16-2023 01-16-2023 Episodic Diseases of mouth; excluding dental (7 sources) Sialoadenitis; Translations: [Sialoadenitis, unspecified] Onset: 01-16-2023 01-16-2023 Episodic E Codes: Fall (7 sources) Fall; Translations: [Unspecified fall, initial encounter] Onset: 08-17-2016 12-07-2022 Episodic Hemorrhoids (14 sources) Hemorrhoids; Translations: [Unspecified hemorrhoids] Onset: 08-17-2016 12-07-2022 Episodic Other and unspecified benign neoplasm (7 sources) History of polyp of colon; Translations: [History of colonic polyps] Onset: 01-16-2023 04-09-2024 Episodic Other bone disease and musculoskeletal deformities (7 sources) Disorder of bone; Translations: [Disorder of bone, unspecified] Onset: 08-17-2016 12-07-2022 Episodic Other fractures (7 sources) Compression fracture of lumbar spine; Translations: [Wedge compression fracture of unspecified lumbar vertebra, initial encounter for closed fracture] Onset: 08-17-2016 12-07-2022 Episodic Other liver diseases (7 sources) Aspartate aminotransferase serum level raised; Translations: [Elevated aspartate aminotransferase level] Onset: 08-17-2016 12-07-2022 Episodic Residual codes; unclassified (7 sources) Postmenopausal state; Translations: [Asymptomatic menopausal state] Onset: 08-17-2016 12-07-2022 Episodic Results Test Name Value Interpretation Reference Range [facility] 08-08-2024 Albumin [Mass/Vol] 4.2 g/dL Normal 3.6-5.1 [facility] Comment on above: Performed By: #### 1 0231 #### [facility] of [address], [address] [place] [address] Client Service Representative: Car Arias MD Albumin/Globulin [Mass ratio] 1.4 {ratio} Normal 1.0-2.5 [facility] Comment on above: Performed By: #### 1 0231 #### [facility] [place] [address] Client Service Representative: Car Arias MD ALP [Catalytic activity/Vol] 135 U/L Normal 37-153 [facility] Comment on above: Performed By: #### 1 0231 #### [facility] of [place] [address] Client Service Representative: Car Arias MD ALT [Catalytic activity/Vol] 20 U/L Normal 6-29 [facility] Comment on above: Performed By: #### 1 0231 #### [facility] of [place] [address] Client Service Representative: Car Arias MD AST [Catalytic activity/Vol] 22 U/L Normal 10-35 [facility] Comment on above: Performed By: #### 1 0231 #### [facility] of [place] [address] Client Service Representative: Car Arias MD Bilirubin [Mass/Vol] 0.4 mg/dL Normal 0.2-1.2 [facility] Comment on above: Performed By: #### 1 0231 #### [facility] [place] [address] Client Service Representative: Car Arias MD BUN/CREATININE RATIO SEE NOTE: Normal 6-22 [facility] Comment on above: Result Comment: Not Reported: BUN and Creatinine are within reference range. Performed By: #### 1 0231 #### [facility] of [address], [address] [place] [address] Client Service Representative: Car Arias MD Calcium [Mass/Vol] 8.9 mg/dL Normal 8.6-10.4 [facility] Comment on above: Performed By: #### 1 0231 #### [facility] of [address], [address] [place] [address] Client Service Representative: Car Arias MD Chloride [Moles/Vol] 98 mmol/L Normal 98-110 [facility] Comment on above: Performed By: #### 1 0231 #### [facility] [place] [address] Client Service Representative: Car Arias MD CO2 [Moles/Vol] 31 mmol/L Normal 20-32 [facility] Comment on above: Performed By: #### 1 0231 #### [facility] of [place] [address] Client Service Representative: Car Arias MD Creatinine [Mass/Vol] 0.60 mg/dL Normal 0.60-1.00 [facility] Comment on above: Performed By: #### 1 0231 #### [facility] of [place] [address] Client Service Representative: Car Arias MD GFR/1.73 sq M.predicted among non-blacks MDRD (S/P/Bld) [Vol rate/Area] 95 mL/min/{1.73_m2} Normal > OR = 60 [facility] Comment on above: Performed By: #### 1 0231 #### [facility] of [place] [address] Client Service Representative: Car Arias MD Globulin (S) [Mass/Vol] 2.9 g/dL Normal 1.9-3.7 [facility] Comment on above: Performed By: #### 1 0231 #### [facility] of [place] [address] Client Service Representative: Car Arias MD Glucose [Mass/Vol] 83 mg/dL Normal 65-99 [facility] Comment on above: Result Comment: Fasting reference interval Performed By: #### 1 0231 #### [facility] of [place] [address] Client Service Representative: Car Arias MD Potassium [Moles/Vol] 4.3 mmol/L Normal 3.5-5.3 [facility] Comment on above: Performed By: #### 1 0231 #### [facility] [place] [address] Client Service Representative: Car Arias MD Protein [Mass/Vol] 7.1 g/dL Normal 6.1-8.1 [facility] Comment on above: Performed By: #### 1 0231 #### [facility] [place] [address] Client Service Representative: Car Arias MD Sodium [Moles/Vol] 137 mmol/L Normal 135-146 [facility] Comment on above: Performed By: #### 1 0231 #### [facility] of [place] [address] Client Service Representative: Car Arias MD Urea nitrogen [Mass/Vol] 11 mg/dL Normal 7-25 [facility] Comment on above: Performed By: #### 1 0231 #### [facility] of [place] [address] Client Service Representative: Car Arias MD CALCIUMon 08-06-2024 Calcium [Mass/Vol] 8.9 mg/dL Normal 8.6-10.4 [facility] Comment on above: Performed By: #### 3 03 #### [facility] of [place] [address] Client Service Representative: Car Arias MD 25-hydroxyvitamin D3 [Mass/V ol]on 08-01-2024 25-hydroxyvitamin D [Mass/Vol] 40 ng/mL 30 - 100 ng/mL [facility] Comment on above: Vitamin D Status 25- [place] Vitamin D: Deficiency: <20 ng/mL Insufficiency: 20 - 29 ng/mL Optimal: > or = 30 ng/mL For 25-OH Vitamin D testing on patients on D2-supplementation and patients for whom quantitation of D2 and D3 fractions is required, the [facility](TM) 25-OH VIT D, (D2,D3), LC/MS/MS is recommended: order code 98817 (patients >2yrs). See Note 1 Note 1 For additional information, please refer to http://education.Gumiyo/faq/BLR890 (This link is being provided for informational/ educational purposes only.) CALCIUMon 08-01-2024 Calcium [Mass/Vol] 8.3 mg/dL Low 8.6-10.4 [facility] Comment on above: Performed By: #### 1 7306, 303 #### [facility] [address], [address] [place], [place] [id number] Client Service Representative: Car Arias MD Calciumon 08-01-2024 Calcium [Mass/Vol] 8.3 mg/dL Low 8.6 - 10. 4 mg/dL [facility] Calcium [Mass/Vol]on 025 Interpretation and review of laboratory results Abnormal [facility] No Panel Informationon 08-01 Performing Organization Information Site ID: QPT Name: [facility] Address: [address] [place] [address], [address] [place] [address] Director: Car Arias MD [facility]ITAMIN D,25-OH,TOTAL,IAon 0 08-01-2024 VITAMIN D,25-OH,TOTAL,IA 40 ng/mL Normal 30-100 [facility] Comment on above: Result Comment: Staci min D Status 25-OH Vitamin D: Deficiency: <20 ng/mL Insufficiency: 20 - 29 ng/mL Optimal: > or = 30 ng/mL For 25-OH Vitamin D testing on patients on D2-supplementation and patients for whom quantitation of D2 and D3 fractions is required, the [facility](TM) 25-OH VIT D, (D2,D3), LC/MS/MS is recommended: order code 22205 (patients >2yrs). See Note 1 Note 1 For additional information, please refer to http://education.Gumiyo/faq/NCD384 (This link is being provided for informational/ educational purposes only.) Performed By: #### 1 7306, 303 #### [facility] [address], [address] [place] [address] Client Service Representative: Car Arias MD BI MAMMOGRAM SCREENING TOMOS YNTHESIS BILATERALon 03-20-2024 [...] IS VERY IMPORTANT TO YOUR HEALTH. THE [employer] GUIDELINES RECOMMEND THAT WOMEN 40 [...] [Mass/Vol] 9.1 mg/dL Normal 8.6-10.2 Nick berger [place] Measurement Supervisor Comment on above: Performed By: #### C A #### [facility] [address] [place], [place] [id number] Vital Signs Date Time Vital Sign Value Performing Clinician Faci lity 08-06-2024 11:02-0500 Body height 162.6 cm Reagan Tiwari BACK UP MACHINE OPERATOR Work Phone: [facility] 08-06-2024 11:02-0500 Body mass index (BMI) [Ratio] 19.05 kg/m2 Reagan Tiwari BACK UP MACHINE OPERATOR Work Phone: [facility] 08-06-2024 11:02-0500 Body weight 50.35 kg Reagan Tiwari BACK UP MACHINE OPERATOR Work Phone: [facility] 08-06-2024 11:02-0500 Diastolic blood pressure 62 mm[Hg] Reagan Tiwari BACK UP MACHINE OPERATOR Work Phone: [facility] 08-06-2024 11:02-0500 Heart rate 77 /min Reagan Tiwari BACK UP MACHINE OPERATOR Work Phone: [facility] 08-06-2024 11:02-0500 SaO2% (BldA) [Mass fraction] 98 % Reagan Tiwari BACK UP MACHINE OPERATOR Work Phone: [facility] 08-06-2024 11:02-0500 Systolic blood pressure 106 mm[Hg] Reagan Tiwari BACK UP MACHINE OPERATOR Work Phone: [facility] 08-05-2024 11:06-0500 Body height 162.6 cm Arline Rios BACK UP MACHINE OPERATOR Work Phone: [facility] 08-05-2024 11:06-0500 Body mass index (BMI) [Ratio] 19.05 kg/m2 Arline Rios BACK UP MACHINE OPERATOR Work Phone: [facility] 08-05-2024 11:06-0500 Body weight 50.35 kg Arline Rios BACK UP MACHINE OPERATOR Work Phone: [facility] Encounters Encounter Date Encounter Type Care Provider Facility Start: 08-06-2024 End: 08-06-2024 Bamboo flowsheet Reagan Tiwari BACK UP MACHINE OPERATOR Work Phone: [facility] Start: 08-06-2024 End: 08-06-2024 Bamboo flowsheet Reagan Tiwari BACK UP MACHINE OPERATOR Work Phone: [facility] Start: 08-06-2024 End: 08-06-2024 Office outpatient visit 25 minutes Reagan Tiwari BACK UP MACHINE OPERATOR Work Phone: [facility] Comment on above: Elevated alanine ami notransferase (ALT) level (Primary Dx); Mild protein-calorie malnutrition (CMS/HCC); Closed fracture of right hip, sequela; Closed fracture of right elbow, sequela Start: 08-06-2024 End: 08-06-2024 ambulatory REAGAN TIWARI Not Available Start: 08-05-2024 End: 08-05-2024 Bamboo flowsheet Arline Mckay Apling BACK UP MACHINE OPERATOR Work Phone: [facility] Start: 08-05-2024 End: 08-05-2024 Bamboo flowsheet Arline Mckay Apling BACK UP MACHINE OPERATOR Work Phone: [facility] Start: 08-05-2024 End: 08-05-2024 Office outpatient visit 15 minutes Arline Mckay Apling BACK UP MACHINE OPERATOR Work Phone: [facility] Comment on above: Osteoporosis without current pathological fracture, unspecified osteoporosis type (CMS/HCC) (Primary Dx) Start: 08-05-2024 End: 08-05-2024 ambulatory ARLINE Mckay APLING Not Available Start: 07-30-2024 End: 08-05-2024 Telephone encounter Arline Medinaing BACK UP MACHINE OPERATOR Work Phone: [facility] Start: 03-21-2024 End: 03-21-2024 ambulatory TUCKER HSU Not Available Start: 02-08-2024 ambulatory Arline Apling Facility:[facility] Start: 01-29-2024 End: 01-29-2024 ambulatory ARLINE B APLING Not Available Start: 12-18-2023 End: 12-18-2023 ambulatory TUCKER SHU Not Available Start: 12-07-2022 Patient encounter status Arline Medinaing BACK UP MACHINE OPERATOR Work Phone: [facility] Start: 05-19-2022 End: 05-19-2022 ambulatory II Tucker Hsu Work Phone: [facility] Work Phone: Start: 05-19-2022 End: 05-19-2022 Departed Referred II Tucker Shadi Work Phone: [facility] [place] Start: 11-23-2018 End: 11-23-2018 Patient encounter procedure ARLINE RIOS Facility:[facility] Procedures Date Procedure Procedure Detail Performing Clinician Start: 07-31-2024 Calcium total Arline Mckay Yesenia ryder BACK UP MACHINE OPERATOR Work Phone: Start: 03-21-2024 Mammography Arline Malcolm pippa BACK UP MACHINE OPERATOR Work Phone: Start: 04-19-2022 Colonoscopy Arline das BACK UP MACHINE OPERATOR Work Phone: Plan of Treatment Date Care Activity Detail Author Start: 04-19-2032 Screening for malignant neoplasm of colon [facility] Start: 03-21-2025 Screening for malignant neoplasm of breast Mammogram [facility] Start: 12-17-2024 Medicare Annual Wellness (AWV) Medicare Annual Wellness (AWV) [facility] Start: 08-06-2024 End: 08-06-2025 Comprehensive metabolic 2000 panel - Serum or Plasma Comprehensive metabolic panel Lab Routine Elevated alanine aminotransferase (ALT) level Mild protein-calorie malnutrition (CMS/HCC) Expected: 08/06/2024 (Approximate), Expires: 08/06/2025 [facility] Work Phone: Comment on above: Expected: 08/06/2024 (Approximate), Expires: 08/06/2025 Start: 08-06-2024 End: 08-06-2024 Patient encounter procedure 08/06/2024 11:00 AM EST Office Visit [facility] [address] [facility] [address] [place] [id number] Reagan Tiwari NP [address] [facility] [address] [place] [address] [facility] Start: 08-05-2024 End: 08-05-2025 Calcium [Mass/volume] in Serum or Plasma Calcium Lab Routine Osteoporosis without current pathological fracture, unspecified osteoporosis type (CMS/HCC) Expected: 08/05/2024 (Approximate), Expires: 08/05/2025 [facility] Work Phone: Comment on above: Expected: 08/05/2024 (Approximate), Expires: 08/05/2025 Start: 08-05-2024 End: 08-05-2024 Patient encounter procedure 08/05/2024 11:00 AM EST Office Visit [facility] [address] [place] [id number] Arline Rios, BACK UP MACHINE OPERATOR [address] [place] [address] Osteoporosis without current pathological fracture, unspecified osteoporosis type (CMS/HCC) (Primary Dx) [facility] Comment on above: Osteoporosis without current pathological fracture, unspecified osteoporosis type (CMS/HCC) (Primary Dx) Start: 03-10-2024 Influenza vaccination Influenza Vacc ine (#1) [facility] Start: 11-24-2022 Screening for malignant neoplasm of colon FIT-DNA [facility] Start: 1950 Screening for malignant neoplasm of colon [facility] Immunizations Immunization Date Immunization Notes Care Provider Fa cility 04-19-2023 Influenza, High-dose Seasonal, Quadrivalent, Preservative Free Arline Apling BACK UP MACHINE OPERATOR Work Phone: [facility] 04-19-2023 influenza virus vacc ine, unspecified formulation Arline Apling BACK UP MACHINE OPERATOR Work Phone: [facility] 04-14-2022 Influenza, High-dose Seasonal, Quadrivalent, Preservative Free Arline Apling BACK UP MACHINE OPERATOR Work Phone: [facility] 04-22-2021 Influenza, High-dose Seasonal, Quadrivalent, Preservative Free Arline Apling BACK UP MACHINE OPERATOR Work Phone: [facility] 03-11-2021 zoster vaccine recombinant M aria Apling BACK UP MACHINE OPERATOR Work Phone: [facility] 12-29-2020 zoster vaccine recombinant M aria Apling BACK UP MACHINE OPERATOR Work Phone: [facility] 05-06-2020 influenza, injectabl e, quadrivalent, preservative free Arline Apling BACK UP MACHINE OPERATOR Work Phone: [facility] 04-25-2019 influenza, high dose seasonal, preservative-free Arline Apling BACK UP MACHINE OPERATOR Work Phone: [facility] 04-18-2019 influenza, injectabl e, quadrivalent, preservative free Arline Apling BACK UP MACHINE OPERATOR Work Phone: [facility] 12-26-2018 tetanus and diphther ia toxoids, adsorbed, preservative free, for adult use (5 Lf of tetanus toxoid and 2 Lf of diphtheria toxoid) Arline Apling BACK UP MACHINE OPERATOR Work Phone: [facility] 10-03-2018 pneumococcal polysaccharide vaccine, 23 valent Arline Apling BACK UP MACHINE OPERATOR Work Phone: [facility] 04-10-2018 influenza, injectabl e, quadrivalent, preservative free Arline Apling BACK UP MACHINE OPERATOR Work Phone: [facility] 08-30-2017 pneumococcal conjuga te vaccine, 13 valent Arline Apling BACK UP MACHINE OPERATOR Work Phone: [facility] 05-02-2017 influenza, injectabl e, quadrivalent, contains preservative Arline Apling BACK UP MACHINE OPERATOR Work Phone: [facility] 05-02-2017 seasonal influenza, intradermal, preservative free Arline Apling BACK UP MACHINE OPERATOR Work Phone: [facility] 04-11-2016 influenza, injectabl e, quadrivalent, contains preservative Arline Apling BACK UP MACHINE OPERATOR Work Phone: [facility] 04-11-2016 tetanus toxoid, redu jeffery diphtheria toxoid, and acellular pertussis vaccine, adsorbed Arline Caroling BACK UP MACHINE OPERATOR Work Phone: [facility] 03-20-2015 influenza, injectabl e, quadrivalent, contains preservative Arline Apling BACK UP MACHINE OPERATOR Work Phone: [facility] 04-16-2014 influenza, injectabl e, quadrivalent, contains preservative Arline Apling BACK UP MACHINE OPERATOR Work Phone: [facility] 03-15-2013 Influenza, High-dose Seasonal, Quadrivalent, Preservative Free Arline Apling BACK UP MACHINE OPERATOR Work Phone: [facility] 09-13-2012 tetanus toxoid, redu jeffery diphtheria toxoid, and acellular pertussis vaccine, adsorbed Arline Apling BACK UP MACHINE OPERATOR Work Phone: [facility] 03-23-2012 Influenza, High-dose Seasonal, Quadrivalent, Preservative Free Arline Apling BACK UP MACHINE OPERATOR Work Phone: [facility] 11-30-2010 tetanus toxoid, redu jeffery diphtheria toxoid, and acellular pertussis vaccine, adsorbed Arline Apling BACK UP MACHINE OPERATOR Work Phone: [facility] 05-26-2010 hepatitis B vaccine, adult dosage Arline Apling BACK UP MACHINE OPERATOR Work Phone: [facility] 05-26-2010 hepatitis B vaccine, pediatric or pediatric/adolescent dosage Arline Apling BACK UP MACHINE OPERATOR Work Phone: [facility] 05-06-2010 influenza, seasonal, injectable, preservative free Arline Apling BACK UP MACHINE OPERATOR Work Phone: [facility] 12-29-2009 hepatitis B vaccine, adult dosage Arline Apling BACK UP MACHINE OPERATOR Work Phone: [facility] 12-29-2009 hepatitis B vaccine, pediatric or pediatric/adolescent dosage Arline Apling BACK UP MACHINE OPERATOR Work Phone: [facility] 11-23-2008 hepatitis B vaccine, adult dosage Arline Apling BACK UP MACHINE OPERATOR Work Phone: [facility] 11-23-2008 hepatitis B vaccine, pediatric or pediatric/adolescent dosage Arline Apling BACK UP MACHINE OPERATOR Work Phone: [facility] Payers Date Payer Category Payer Self-pay [id number] 2021 () [id number] 2019 [employer] ( and others) [id number] 2017 Medicare MEDICARE [id number] 1959 [employer] ( and others) [id number] 1959 Medicare [id number] 1950 Unknown [id number] 1952 Unknown [id number] 1952 Unknown [id number] 1952 Unknown [id number] 1952 Unknown [id number] 1952 Unknown [id number] [employer] ( and others) [facility] [id number] [employer] ( and others) [facility] [employer] [id number] Unknown [id number] Social History Date Type [facility]ail [facility] [facility] Work Phone: Start: 1950 Sex Assigned At Female F [facility] Start: 12-07-2022 [facility] Start: 12-07-2022 Tobacco use and exposure Smokeless tobacco non-user [facility] Start: 01-29-2024 End: 08-06-2024 Alcoholic beverage intake Lifetime non-drinker (finding) [facility] Start: 12-05-2022 End: 07-31-2024 History of Social function [facility] Start: 12-05-2022 End: 07-31-2024 [id number] Health Literacy [facility] How often do you nee d to have someone help you when you read instructions, pamphlets, or other written material from your doctor or pharmacy [SILS] Never [facility] Within the last year , have you been afraid of your partner or ex-partner? No [facility] Are you now , , , , never or living with a partner? [facility] How often to you hav e a drink containing alcohol? Never [facility] Do you feel stress - tense, restless, nervous, or anxious, or unable to sleep at night because your mind is troubled all the time - these days [OSQ] Only a little [facility] (I/We) worried wheth er (my/our) food would run out before (I/we) got money to buy more. Never true [facility] Start: 1950 Sex assigned at Not on file [facility] History of Present illness Narrative 08-06-2024 Reagan Tiwari NP - 08/06/2024 11:00 AM EST Note Date & Type Note Facility 08-06-2024 History of Presen t illness Narrative Images from the original note were not included. HPI Follow-up Additional comments: Admitted 07/11/24 to [facility] dx: fall,right elbow fracture ( had ORIF right elbow) and right hip fracture discharged 07/14/24 [facility] discharged home 08/02/24 Last edited by Sylwia Dorado LPN on 08/06/2024 11:08 AM. Subjective Patient ID: Selena Prado is a 74 y.o. female who presents for Follow-up (Admitted 07/11/24 to [facility] dx: fall,right elbow fracture ( had ORIF right elbow) and right hip fracture discharged 07/14/24 to [facility] discharged home 08/02/24). Flowsheet Row Patient Outreach from 07/15/2024 in [facility] with Maryan Hoang LPN Hospital Information ED, Hospital or Halfway Facility Discharge? Hospital Patient has been contacted within two business days of discharge No [DUE TO GOING TO SNF] Have two attempts been made to contact the patient within two business days of being discharged? No Diagnosis MAJOR DEPRESSIVE DISORDER, SYNCOPE-FALL FX RIGHT ACETEBULUM AND FX OLERCRANEON PROCESS WITHOUT INTRAARTICULAR EXTENSOIN RIGHT ULNA Discharge Date 07/14/24 Discharged To: Halfway Facility (specify SNF in comments) Discharge Hospital [facility] Halfway Facilities [facility] Engagement Admission Date 07/11/24 Medications Appointments Self Management Patient Teaching Wrap Up Pt uses otc tylenol for pain pt states it is controlling pain Pt has appt to follow up with ortho 08/26/24 Pt ortho that does her prolia injections is leaving she is requesting PCP take over prolia she will be due mid aug 2024 Current Outpatient Medications on File Prior to Visit Medication Sig Dispense Refill Calcium Carb-Cholecalciferol (CALCIUM + VITAMIN D3 PO) Take by mouth Daily. Ginkgo Biloba 40 MG tablet Ginko Biloba Multiple Vitamin (DAILY VITAMIN PO) Daily Vitamin sertraline (Zoloft) 100 MG tablet Take 1 tablet (100 mg) by mouth Daily 90 tablet 0 sertraline (Zoloft) 25 MG tablet TAKE 1 TABLET DAILY 100 tablet 3 simvastatin (Zocor) 20 MG tablet TAKE 1 TABLET DAILY IN THE EVENING 90 tablet 3 VITAMIN C, CALCIUM ASCORBATE, PO Vitamin C No current facility-administered medications on file prior to visit. I have reviewed and reconciled the history and medication list with the patient today. No Known Allergies Social History Tobacco Use Smoking status: Never Smokeless tobacco: Never Substance Use Topics Alcohol use: Never Drug use: Never Family History Problem Relation Name Age of Onset Hypertension Father Stomach cancer Father Past Medical History: Diagnosis Date Age-related osteoporosis without current pathological fracture (CMS/HCC) 12/01/2022 Chicken pox COVID-19 03/2022 Family history of cancer Hemorrhoids Hypercholesterolemia (CMS/HCC) Hyperlipemia, mixed (CMS/HCC) Measles Mumps Oral infection Osteopenia Recurrent major depressive disorder (HCC) (CMS/HCC) 12/01/2022 Sialoadenitis Past Surgical History: Procedure Laterality Date COLONOSCOPY 02/17/2015 COLONOSCOPY W/ POLYPECTOMY 05/19/2022 ([facility]) ELBOW FRACTURE SURGERY Right 07/2024 orif IR VERTEBROPLASTY LUMBAR 12/13/2012 Visit Vitals Ht 5' 4 BMI 19.05 kg/m Smoking Status Never BSA 1.51 m Review of Systems Constitutional: Positive for activity change. HENT: Negative. Respiratory: Negative. Cardiovascular: Negative. Gastrointestinal: Negative. Genitourinary: Negative. Musculoskeletal: Mild pain, numbness in thumb Skin: Negative. Neurological: Positive for weakness. Psychiatric/Behavioral: Positive for dysphoric mood. Objective Physical Exam Vitals reviewed. Constitutional: Appearance: Normal appearance. HENT: Head: Normocephalic. Nose: Nose normal. Mouth/Throat: Mouth: Mucous membranes are moist. Pharynx: Oropharynx is clear. Eyes: Conjunctiva/sclera: Conjunctivae normal. Cardiovascular: Rate and Rhythm: Normal rate and regular rhythm. Pulmonary: Effort: Pulmonary effort is normal. Breath sounds: Normal breath sounds. Musculoskeletal: Comments: Rt arm in sling Skin: General: Skin is warm and dry. Neurological: General: No focal deficit present. Mental Status: She is alert and oriented to person, place, and time. Psychiatric: Mood and Affect: Mood normal. Behavior: Behavior normal. Thought Content: Thought content normal. Judgment: Judgment normal. Assessment/Plan Diagnoses and all orders for this visit: 1. Elevated alanine aminotransferase (ALT) level (Primary) Await lab - Comprehensive metabolic panel; Future - Comprehensive metabolic panel 2. Mild protein-calorie malnutrition (CMS/HCC) Await lab - Comprehensive metabolic panel; Future - Comprehensive metabolic panel 3. Closed fracture of right hip, sequela Pt was recently discharged from [facility]. Hip is in good alignment and did not require surgery. Continue APAP for pain. Follow up with ortho as ordered. 4. Closed fracture of right elbow, sequela Pt was recently discharged from [facility]. Continues with sling as ordered. Follow up with orho as scheduled. Continue APAP for pain. No follow-ups on file. documented in this encounter [facility] History of Present illness Narrative 08-05-2024 Arline Rios NP - 08/05/2024 11:00 AM EST Note Date & Type Note Facility 08-05-2024 History of Presen t illness Narrative Subjective Patient ID: Selena Prado is a 74 y.o. female. Risk factors (non-modifiable): Age, Family history-mother, Petite build. Had calcium and Vitamin D drawn 07/31/24- did not stop taking calcium DEXA scan results:all dexa scans were done at [facility] 2005 L1-L4 -2.8 and lt fem neck -3.0, 2007 L1-L4 -2.3 lt fem neck -2.5, 2011 L2-L4 -2.4, lt fem neck -3.0, 2013 L2-L4 -2.4, lt fem neck -2.3, 2016 L1-L4 -2.3, lt fem neck -2.7, 10/18/2018 [facility] lt radius total -2.6, lt fem neck -2.6, [facility] 12/02/20 LT femur -2.7, L1-L4 -2.4, LT total hip -2.8, RT total hip -2.5 dexa scan [facility] 12/06/22 LT mean -2.4, RT fem neck -2.8, LT FA total -1.9, LT total hip -2.5, RT total hip -2.2 Fracture history: Proximal humerus fracture 2018, L5 spine fracture 2012. Recent RT elbow and RT hip fracture 07/2024. Had sx on her RT elbow at [facility] Calcium intake: calcium 900 mg daily and 1,000 international units vitamin d in the multivitamin, cheese, milk, yogurt Vitamin D intake: look at calcium category, Sun exposure in the summer Bisphosphonate therapy: Fosamax once a week that made her sick, was on Boniva x 5 years, Prolia 11/23/18 @[facility], 06/13/19 @ [facility], [facility] 01/02/2020, 07/07/2020, 01/05/21, 08/05/21, 02/10/22, 08/11/22, 02/09/2023, Prolia 08/10/23 @ [facility] Has a RT hip fracture, fell 07/2024. Pt is NWB on RT side. Admits intermittent jaw pain, wears mouth guard every night. Calcium 8.3 07/31/24, vitamin d 40 Notes she was not informed to stop taking calcium before getting calcium taken Height and weight taken today in office without shoes: 111 lbs, 64 inches. Objective Ortho Exam No jaw pain to palpation, no hip pain to palpation, no anterior thigh pain Calcium 8.3 on 07/31/24 Vitamin d 40 in 07/31/24 Assessment/Plan Encounter Diagnoses: ICD-10-CM 1. Osteoporosis without current pathological fracture, unspecified osteoporosis type ([facility]) M81.0 Calcium Calcium She is scheduled 08/15/24 for prolia at [facility], will reorder ca to see if we can get it within normal range prior to 08/15/24, otherwise will have to postpone prolia injection, discussed to f/U with pcp or dr raymundo in the the future since I will be leaving my current practice, she notes she will ask her PCP documented in this encounter [facility] Telephone encounter Note 07-30-2024 Telephone Encounter - ALMA Price - 07/30/2024 9:43 AM EST Note Date & Type Note Facility 07-30-2024 Telephone encounter Note Called and spoke to patient. States she would like the labs drawn at [facility]. She is due for prolia August 15. She is currently at [facility] until Monday (she fell and broke her hip and elbow). [facility] [employer] Work Phone: Note 07-30-2024 Telephone Encounter - ALMA Price - 07/30/2024 9:43 AM EST Note Date & Type Note Facility 07-30-2024 Miscellaneous Notes Formattin g of this note might be different from the original. Called and spoke to patient. States she would like the labs drawn at [facility]. She is due for prolia August 15. She is currently at [facility] until Monday (she fell and broke her hip and elbow). documented in this encounter [facility] Evaluation note Note Date & Type Note Facility Evaluation note No assessment information availa [facility] Work Phone: Evaluation note Note Date & Type Note Facility Evaluation note Diagnosis Osteoporosis without current pathological fracture, unspecified osteoporosis type (CMS/HCC)- Primary documented in this encounter [facility] Healthcare Evaluation note Note Date & Type Note Facility Evaluation note Diagnosis Osteoporosis without current pathological fracture, unspecified osteoporosis type (CMS/HCC)- Primary documented in this encounter [facility] Healthcare Evaluation note Note Date & Type Note Facility Evaluation note Diagnosis Elevated alanine aminotransferase (ALT) level- Primary Mild protein-calorie malnutrition (CMS/HCC) Closed fracture of right hip, sequela Closed fracture of right elbow, sequela documented in this encounter [facility] Summary Purpose Family History No Family History Records FoundNo Family History Records FoundNo Family History Records FoundNo Family History Records FoundNo Family History Records Found Advance Directives No Advanced Directives Records Found Advance Directive Response Recorded Date/ Time Advance Directives No June 10, 2019 5:42pm Additional Source Comments INFORMATION SOURCE (unrecogn ized section and content) DATE CREATED AUTHOR 02/16/2019 [facility] DATE CREATED AUTHOR AUTHOR'S ORGANIZ ATION 06/16/2021 [facility] dical Specialist DATE CREATED AUTHOR AUTHOR'S ORGANIZ ATION 07/21/2024 [facility] DATE CREATED AUTHOR AUTHOR'S ORGANIZ ATION 08/07/2024 [facility] Specialists EPIC DATE CREATED AUTHOR AUTHOR'S ORGANIZ ATION 08/08/2024 [facility] Care Teams (unrecognized sec tion and content) Team Status: Inactive Member Role Status Dates Tucker Hsu II MD Primary Care Provider Active Neeraj Stafford DO Attending Provider Active Team Status: Active Member Role Status Dates Tucker Hsu II MD Primary Care Provider Active [employer] Relationship Specialty Start Date End Date Tucker Hsu MD [address] [place] [address] PCP - General Internal Medicine 11/23/22 Tucker Hsu MD [address] [place] [address] PCP - ACO Reach 07/09/23 [employer] Changer Relationship Specialty Start Date End Date Tcuker Hsu MD [address] [place] [address] PCP - General Internal Medicine 11/23/22 Tucker Hsu MD [address] [place] [address] PCP - ACO Reach 07/09/23 Chemical Cell Changer Relationship Specialty Start Date End Date Tucker Hsu MD [address] [place] [address] PCP - General Internal Medicine 11/23/22 Tucker Hsu MD [address] [place] [address] PCP - ACO Reach 07/09/23 Chemical Cell Changer Relationship Specialty Start Date End Date Tucker Hsu MD [address] [place] [address] PCP - General Internal Medicine 11/23/22 Tucker Hsu MD [address] [place] [address] PCP - ACO Reach 07/09/23 Chemical Cell Changer Relationship Specialty Start Date End Date Tucker Hsu MD [address] [place] [address] PCP - General Internal Medicine 11/23/22 Tucker Hsu MD [address] [facility] [address] [place] [address] PCP - ACO Reach 07/09/23 Goals (unrecognized section and content) Goals may be documented in a n alternate section Reason for Visit (unrecogniz ed section and content) Reason Comments Follow-up Reason Comments Follow-up Admitted 07/11/24 to [facility] dx: fall,right elbow fracture ( had ORIF right elbow) and right hip fracture discharged 07/14/24 to [facility] discharged home 08/02/24 FOR RECORDS PERTAINING TO PATIENTS WHO ARE [...] BE BASED ON THE PRIMARY CLINICAL RECORDS. [employer] [facility]. provides no warranty or guarantee of the accuracy or completeness of information in this document.
--- OUTSIDE RECORDS SUMMARY | 2024-08-21 14:26 | XMS_ITS | CCD ---
Author Organization [facility] Care Team Providers Care Appointment Scheduler Name Role Phone WINDY, ARLINE Admitting Unavailable APLING, ARLINE Attending Unavailable TUCKER HSU Primary Care Unavailable WINDY, ARLINE Consulting Unavailable NAY Hsu Primary Care Provider DO Neeraj Stafford Attending Provider Tucker Hsu MD Primary Care Provider [phone] Tucker Hsu MD Unavailable [phone] WINDY, ARLINE Mckay Attending Unavailable REAGAN TIWARI Attending Unavailable TUCKER HSU Attending Unavailable ARLINE RIOS Attending Unavailable TUCKRE HSU Referring Unavailable Apling, Arline Referring Unavailable [...] PO Twice daily June 13, 2019 12:00am Tlf-V8-Teg56-Zinc- Ivq-Ykno-Dib (1 source) Start: 06-13-2019 take 1 tablet by mouth twice daily Ihq-O9-Eqm72-Zinc -Kmw-Yiys-Pgs Active 1 TAB PO Twice daily June [...] Results Test Name Value Interpretation Reference Range [facility] 08-08-2024 Albumin [Mass/Vol] 4.2 g/dL Normal 3.6-5.1 [facility] Comment on above: Performed By: #### 1 0231 #### [facility] of [address], [address] [place] [address] [employer] Machine Bindery Operator: Car Arias MD Albumin/Globulin [Mass ratio] 1.4 {ratio} Normal 1.0-2.5 [facility] Comment on above: Performed By: #### 1 0231 #### [facility] of [place] [address] [employer] Machine Bindery Operator: Car Arias MD ALP [Catalytic activity/Vol] 135 U/L Normal 37-153 [facility] Comment on above: Performed By: #### 1 0231 #### [facility] of [place] [address] [employer] Machine Bindery Operator: Car Arias MD ALT [Catalytic activity/Vol] 20 U/L Normal 6-29 [facility] Comment on above: Performed By: #### 1 0231 #### [facility] of [place] [address] Small Machine Bindery Operator: Car Arias MD AST [Catalytic activity/Vol] 22 U/L Normal 10-35 [facility] Comment on above: Performed By: #### 1 0231 #### [facility] of [place] [address] Small Machine Bindery Operator: Car Arias MD Bilirubin [Mass/Vol] 0.4 mg/dL Normal 0.2-1.2 [facility] Comment on above: Performed By: #### 1 0231 #### [facility] [place] [address] Small Machine Bindery Operator: Car Arias MD BUN/CREATININE RATIO SEE NOTE: Normal 6-22 [facility] Comment on above: Result Comment: Not Reported: BUN and Creatinine are within reference range. Performed By: #### 1 0231 #### [facility] of [address], [address] [place] [address] Small Machine Bindery Operator: Car Arias MD Calcium [Mass/Vol] 8.9 mg/dL Normal 8.6-10.4 [facility] Comment on above: Performed By: #### 1 0231 #### [facility] of [address], [address] [place] [address] Small Machine Bindery Operator: Car Arias MD Chloride [Moles/Vol] 98 mmol/L Normal 98-110 [facility] Comment on above: Performed By: #### 1 0231 #### [facility] [place] [address] Small Machine Bindery Operator: Car Arias MD CO2 [Moles/Vol] 31 mmol/L Normal 20-32 [facility] Comment on above: Performed By: #### 1 0231 #### [facility] of [place] [address] Small Machine Bindery Operator: Car Arias MD Creatinine [Mass/Vol] 0.60 mg/dL Normal 0.60-1.00 [facility] Comment on above: Performed By: #### 1 0231 #### [facility] of [place] [address] Small Machine Bindery Operator: Car Arias MD GFR/1.73 sq M.predicted among non-blacks MDRD (S/P/Bld) [Vol rate/Area] 95 mL/min/{1.73_m2} Normal > OR = 60 [facility] Comment on above: Performed By: #### 1 0231 #### [facility] of [place] [address] Small Machine Bindery Operator: Car Arias MD Globulin (S) [Mass/Vol] 2.9 g/dL Normal 1.9-3.7 [facility] Comment on above: Performed By: #### 1 0231 #### [facility] of [place] [address] Small Machine Bindery Operator: Car Arias MD Glucose [Mass/Vol] 83 mg/dL Normal 65-99 [facility] Comment on above: Result Comment: Fasting reference interval Performed By: #### 1 0231 #### [facility] of [place] [address] Small Machine Bindery Operator: Car Arias MD Potassium [Moles/Vol] 4.3 mmol/L Normal 3.5-5.3 [facility] Comment on above: Performed By: #### 1 0231 #### [facility] of [place] [address] Small Machine Bindery Operator: Car Arias MD Protein [Mass/Vol] 7.1 g/dL Normal 6.1-8.1 [facility] Comment on above: Performed By: #### 1 0231 #### [facility] of [place] [address] Small Machine Bindery Operator: Car Arias MD Sodium [Moles/Vol] 137 mmol/L Normal 135-146 [facility] Comment on above: Performed By: #### 1 0231 #### [facility] of [place] [address] Small Machine Bindery Operator: Car Arias MD Urea nitrogen [Mass/Vol] 11 mg/dL Normal 7-25 [facility] Comment on above: Performed By: #### 1 0231 #### [facility] of [place] [address] Small Machine Bindery Operator: Car Arias MD CALCIUMon 08-06-2024 Calcium [Mass/Vol] 8.9 mg/dL Normal 8.6-10.4 [facility] Comment on above: Performed By: #### 3 03 #### [facility] of [place] [address] Small Machine Bindery Operator: Car Arias MD 25-hydroxyvitamin D3 [Mass/V ol]on 08-01-2024 25-hydroxyvitamin D [Mass/Vol] 40 ng/mL 30 - 100 ng/mL [facility] Comment on above: Vitamin D Status 25- [place] Vitamin D: Deficiency: <20 ng/mL Insufficiency: 20 - 29 ng/mL Optimal: > or = 30 ng/mL For 25-OH Vitamin D testing on patients on D2-supplementation and patients for whom quantitation of D2 and D3 fractions is required, the QuestAssure[facility](TM) 25-OH VIT D, (D2,D3), LC/MS/MS is recommended: order code 43085 (patients >2yrs). See Note 1 Note 1 For additional information, please refer to http://education.HDB [employer]co/faq/CWZ736 (This link is being provided for informational/ educational purposes only.) CALCIUMon 08-01-2024 Calcium [Mass/Vol] 8.3 mg/dL Low 8.6-10.4 [facility] Comment on above: Performed By: #### 1 7306, 303 #### [facility] [address] Small Machine Bindery Operator: Car Arias MD Calciumon 08-01-2024 Calcium [Mass/Vol] 8.3 mg/dL Low 8.6 - 10. 4 mg/dL [facility] Calcium [Mass/Vol]on 025 Interpretation and review of laboratory results Abnormal [facility] No Panel Informationon 08-01 Performing Organization Information Site ID: QPT Name: [facility] Address: [address] [place] [address], [address] [place], [place] [id number] Director: Car Arias MD [facility] VITAMIN D,25-OH,TOTAL,IAon 0 08-01-2024 VITAMIN D,25-OH,TOTAL,IA 40 ng/mL Normal 30-100 [facility] Comment on above: Result Comment: Staci min D Status 25-OH Vitamin D: Deficiency: <20 ng/mL Insufficiency: 20 - 29 ng/mL Optimal: > or = 30 ng/mL For 25-OH Vitamin D testing on patients on D2-supplementation and patients for whom quantitation of D2 and D3 fractions is required, the [facility](TM) 25-OH VIT D, (D2,D3), LC/MS/MS is recommended: order code 30424 (patients >2yrs). See Note 1 Note 1 For additional information, please refer to http://education.H[employer]/faq/LJV711 (This link is being provided for informational/ educational purposes only.) Performed By: #### 1 7306, 303 #### [facility] [place] [id number] [facility], [address] [place] [address] Small Machine Bindery Operator: Car Arias MD BI MAMMOGRAM SCREENING TOMOS [...] IS VERY IMPORTANT TO YOUR HEALTH. THE [employer] GUIDELINES RECOMMEND THAT WOMEN 40 [...] [Mass/Vol] 9.1 mg/dL Normal 8.6-10.2 Nick berger [place] [employer] Comment on above: Performed By: #### C A #### [facility] [address] [place], [place] [id number] Vital Signs Date Time Vital Sign Value Performing Clinician Faci lity 08-06-2024 11:02-0500 Body height 162.6 cm Reagan Tiwari BURIAL AGENT Work Phone: [facility] 08-06-2024 11:02-0500 Body mass index (BMI) [Ratio] 19.05 kg/m2 Reagan Tiwari BURIAL AGENT Work Phone: [facility] 08-06-2024 11:02-0500 Body weight 50.35 kg Reagan Tiwari BURIAL AGENT Work Phone: [facility] 08-06-2024 11:02-0500 Diastolic blood pressure 62 mm[Hg] Reagan Tiwari BURIAL AGENT Work Phone: [facility] 08-06-2024 11:02-0500 Heart rate 77 /min Reagan Tiwari BURIAL AGENT Work Phone: [facility] 08-06-2024 11:02-0500 SaO2% (BldA) [Mass fraction] 98 % Reagan Tiwari BURIAL AGENT Work Phone: [facility] 08-06-2024 11:02-0500 Systolic blood pressure 106 mm[Hg] Reagan Tiwari BURIAL AGENT Work Phone: [facility] 08-05-2024 11:06-0500 Body height 162.6 cm Arline Medinaing BURIAL AGENT Work Phone: [facility] 08-05-2024 11:06-0500 Body mass index (BMI) [Ratio] 19.05 kg/m2 Arline Medinaing BURIAL AGENT Work Phone: [facility] 08-05-2024 11:06-0500 Body weight 50.35 kg Arline Apling BURIAL AGENT Work Phone: [facility] Encounters Encounter Date Encounter Type Care Provider Facility Start: 08-15-2024 ambulatory Arline Rios Facility:[facility] Start: 08-06-2024 End: 08-06-2024 Bamboo flowsheet Reagan Tiwari BURIAL AGENT Work Phone: [facility] Start: 08-06-2024 End: 08-06-2024 Bamboo flowsheet Reagan Tiwari BURIAL AGENT Work Phone: [facility] Start: 08-06-2024 End: 08-06-2024 Office outpatient visit 25 minutes Reagan Tiwari BURIAL AGENT Work Phone: [facility] Comment on above: Elevated alanine ami notransferase (ALT) level (Primary Dx); Mild protein-calorie malnutrition (CMS/HCC); Closed fracture of right hip, sequela; Closed fracture of right elbow, sequela Start: 08-06-2024 End: 08-06-2024 ambulatory REAGAN TIWARI Not Available Start: 08-05-2024 End: 08-05-2024 Bamboo flowsheet Arline Mckay Caroljose angel BURIAL AGENT Work Phone: [facility] Start: 08-05-2024 End: 08-05-2024 Bamboo flowsheet Arline Mckay Caroling BURIAL AGENT Work Phone: [facility] Start: 08-05-2024 End: 08-05-2024 Office outpatient visit 15 minutes Arline Mckay Caroljose angel BURIAL AGENT Work Phone: [facility] Comment on above: Osteoporosis without current pathological fracture, unspecified osteoporosis type (CMS/HCC) (Primary Dx) Start: 08-05-2024 End: 08-05-2024 ambulatory ARLINE Mckay APLING Not Available Start: 07-30-2024 End: 08-05-2024 Telephone encounter Arline Rios BURIAL AGENT Work Phone: [facility] Start: 03-21-2024 End: 03-21-2024 ambulatory TUCKER HSU Not Available Start: 01-29-2024 End: 01-29-2024 ambulatory ARLINE Mckay APLING Not Available Start: 12-18-2023 End: 12-18-2023 ambulatory TUCKER HSU Not Available Start: 12-07-2022 Patient encounter status Arline Rios BURIAL AGENT Work Phone: [facility] Start: 05-19-2022 End: 05-19-2022 ambulatory II Tucker Hsu Work Phone: [facility] Work Phone: Start: 05-19-2022 End: 05-19-2022 Departed Referred II Tucker Hsu Work Phone: [facility] [place] Start: 11-23-2018 End: 11-23-2018 Patient encounter procedure ARLINE RIOS Facility:[facility]1 Procedures Date Procedure Procedure Detail Performing Clinician Start: 07-31-2024 Calcium total Arline Mckay Yesenia ryder BURIAL AGENT Work Phone: Start: 03-21-2024 Mammography Arline Malcolm pippa BURIAL AGENT Work Phone: Start: 04-19-2022 Colonoscopy Arline das BURIAL AGENT Work Phone: Plan of Treatment Date Care Activity Detail Author Start: 04-19-2032 Screening for malignant neoplasm of colon [facility] Start: 03-21-2025 Screening for malignant neoplasm of breast Mammogram [facility] Start: 12-17-2024 Medicare Annual Wellness (AWV) Medicare Annual Wellness (AWV) [facility] Start: 08-06-2024 End: 08-06-2025 Comprehensive metabolic 2000 panel - Serum or Plasma Comprehensive metabolic panel Lab Routine Elevated alanine aminotransferase (ALT) level Mild protein-calorie malnutrition (CMS/HCC) Expected: 08/06/2024 (Approximate), Expires: 08/06/2025 [facility] Work Phone: Comment on above: Expected: 08/06/2024 (Approximate), Expires: 08/06/2025 Start: 08-06-2024 End: 08-06-2024 Patient encounter procedure 08/06/2024 11:00 AM EST Office Visit [facility] [address] [place] [address] Reagan Tiwari BURIAL AGENT [address] [place] [address] [facility] Start: 08-05-2024 End: 08-05-2025 Calcium [Mass/volume] in Serum or Plasma Calcium Lab Routine Osteoporosis without current pathological fracture, unspecified osteoporosis type (CMS/HCC) Expected: 08/05/2024 (Approximate), Expires: 08/05/2025 [facility] Work Phone: Comment on above: Expected: 08/05/2024 (Approximate), Expires: 08/05/2025 Start: 08-05-2024 End: 08-05-2024 Patient encounter procedure 08/05/2024 11:00 AM EST Office Visit [facility] [address] [place] [id number] Arline Rios BURIAL AGENT [address] [place] [address] Osteoporosis without current pathological fracture, unspecified osteoporosis type (CMS/HCC) (Primary Dx) [facility] Comment on above: Osteoporosis without current pathological fracture, unspecified osteoporosis type (CMS/HCC) (Primary Dx) Start: 03-10-2024 Influenza vaccination Influenza Vacc ine (#1) [facility] Start: 11-24-2022 Screening for malignant neoplasm of colon FIT-DNA [facility] Start: 1950 Screening for malignant neoplasm of colon [facility] Immunizations Immunization Date Immunization Notes Care Provider Fa cility 04-19-2023 Influenza, High-dose Seasonal, Quadrivalent, Preservative Free Arline Apling BURIAL AGENT Work Phone: [facility] 04-19-2023 influenza virus vacc ine, unspecified formulation Arline Apling BURIAL AGENT Work Phone: [facility] 04-14-2022 Influenza, High-dose Seasonal, Quadrivalent, Preservative Free Arline Apling BURIAL AGENT Work Phone: [facility] 04-22-2021 Influenza, High-dose Seasonal, Quadrivalent, Preservative Free Arline Apling BURIAL AGENT Work Phone: [facility] 03-11-2021 zoster vaccine recombinant M aria Apling BURIAL AGENT Work Phone: [facility] 12-29-2020 zoster vaccine recombinant M aria Apling BURIAL AGENT Work Phone: [facility] 05-06-2020 influenza, injectabl e, quadrivalent, preservative free Arline Apling BURIAL AGENT Work Phone: [facility] 04-25-2019 influenza, high dose seasonal, preservative-free Arline Apling BURIAL AGENT Work Phone: [facility] 04-18-2019 influenza, injectabl e, quadrivalent, preservative free Arline Apling BURIAL AGENT Work Phone: [facility] 12-26-2018 tetanus and diphther ia toxoids, adsorbed, preservative free, for adult use (5 Lf of tetanus toxoid and 2 Lf of diphtheria toxoid) Arline Apling BURIAL AGENT Work Phone: [facility] 10-03-2018 pneumococcal polysaccharide vaccine, 23 valent Arline Apling BURIAL AGENT Work Phone: [facility] 04-10-2018 influenza, injectabl e, quadrivalent, preservative free Arline Apling BURIAL AGENT Work Phone: [facility] 08-30-2017 pneumococcal conjuga te vaccine, 13 valent Arline Apling BURIAL AGENT Work Phone: [facility] 05-02-2017 influenza, injectabl e, quadrivalent, contains preservative Arline Apling BURIAL AGENT Work Phone: [facility] 05-02-2017 seasonal influenza, intradermal, preservative free Arline Apling BURIAL AGENT Work Phone: [facility] 04-11-2016 influenza, injectabl e, quadrivalent, contains preservative Arline Apling BURIAL AGENT Work Phone: [facility] 04-11-2016 tetanus toxoid, redu jeffery diphtheria toxoid, and acellular pertussis vaccine, adsorbed Arline Apling BURIAL AGENT Work Phone: [facility] 03-20-2015 influenza, injectabl e, quadrivalent, contains preservative Arline Apling BURIAL AGENT Work Phone: [facility] 04-16-2014 influenza, injectabl e, quadrivalent, contains preservative Arline Apling BURIAL AGENT Work Phone: [facility] 03-15-2013 Influenza, High-dose Seasonal, Quadrivalent, Preservative Free Arline Apling BURIAL AGENT Work Phone: [facility] 09-13-2012 tetanus toxoid, redu jeffery diphtheria toxoid, and acellular pertussis vaccine, adsorbed Arline Apling BURIAL AGENT Work Phone: [facility] 03-23-2012 Influenza, High-dose Seasonal, Quadrivalent, Preservative Free Arline Apling BURIAL AGENT Work Phone: [facility] 11-30-2010 tetanus toxoid, redu jeffery diphtheria toxoid, and acellular pertussis vaccine, adsorbed Arline Apling BURIAL AGENT Work Phone: [facility] 05-26-2010 hepatitis B vaccine, adult dosage Arline Apling BURIAL AGENT Work Phone: [facility] 05-26-2010 hepatitis B vaccine, pediatric or pediatric/adolescent dosage Arline Apling BURIAL AGENT Work Phone: [facility] 05-06-2010 influenza, seasonal, injectable, preservative free Arline Apling BURIAL AGENT Work Phone: [facility] 12-29-2009 hepatitis B vaccine, adult dosage Arline Apling BURIAL AGENT Work Phone: [facility] 12-29-2009 hepatitis B vaccine, pediatric or pediatric/adolescent dosage Arline Apling BURIAL AGENT Work Phone: [facility] 11-23-2008 hepatitis B vaccine, adult dosage Arline Apling BURIAL AGENT Work Phone: [facility] 11-23-2008 hepatitis B vaccine, pediatric or pediatric/adolescent dosage Arline Apling BURIAL AGENT Work Phone: [facility] Payers Date Payer Category Payer Self-pay [id number] 2021 (TIFFANY) [id number] 2019 [employer] ( and others) [id number] 2017 Medicare MEDICARE [id number] 1959 [employer] ( and others) [id number] 1959 Medicare [id number] 1950 Unknown [id number] 1950 Unknown [id number] 1952 Unknown [id number] 1952 Unknown [id number] 1952 Unknown [id number] 1952 Unknown [id number] [employer] ( and others) [facility] [id number] [employer] ( and others) [facility] [id number] Unknown [id number] Social History Date Type Detail [facility] Work Phone: Start: 1950 Sex Assigned At Female F [facility] Start: 12-07-2022 [facility] Start: [...] History of Present illness Narrative 08-06-2024 Reagan Tiwari, BURIAL AGENT - 08/06/2024 11:00 AM EST Note Date & Type Note Facility 08-06-2024 History of Presen t illness Narrative Images from the original note were not included. HPI Follow-up Additional comments: Admitted 07/11/24 to [facility] dx: fall,right elbow fracture ( had ORIF right elbow) and right hip fracture discharged 07/14/24 to [facility] discharged home 08/02/24 Last edited by Sylwia Dorado LPN on 08/06/2024 11:08 AM. Subjective Patient ID: Selena Prado is a 74 y.o. female who presents for Follow-up (Admitted 07/11/24 to [facility] dx: fall,right elbow fracture ( had ORIF right elbow) and right hip fracture discharged 07/14/24 to [facility] discharged home 08/02/24). Flowsheet Row Patient Outreach from 07/15/[address] [facility] with Maryan Hoang LPN Hospital Information ED, Hospital or Penitentiary Facility Discharge? Hospital Patient has been contacted within two business days of discharge No [DUE TO GOING TO SNF] Have two attempts been made to contact the patient within two business days of being discharged? No Diagnosis MAJOR DEPRESSIVE DISORDER, SYNCOPE-FALL FX RIGHT ACETEBULUM AND FX OLERCRANEON PROCESS WITHOUT INTRAARTICULAR EXTENSOIN RIGHT ULNA Discharge Date 07/14/24 Discharged To: Penitentiary Facility (specify SNF in comments) Discharge Hospital [facility] Facilities [facility] Engagement Admission Date 07/11/24 Medications Appointments [...] hip, sequela Pt was recently discharged from [facility]. Hip is in good alignment and did not require surgery. Continue APAP for pain. Follow up with ortho as ordered. 4. Closed fracture of right elbow, sequela Pt was recently discharged from [facility]. Continues with sling as ordered. Follow up with orho as scheduled. Continue APAP for pain. No follow-ups on file. documented in this encounter [facility] History of Present illness Narrative [...] scan results:all dexa scans were done at [facility] 2005 L1-L4 -2.8 and lt fem [...] Had sx on her RT elbow at [facility] Calcium intake: calcium 900 mg daily and 1,000 international units vitamin d in the multivitamin, cheese, milk, yogurt Vitamin D intake: look at calcium category, Sun exposure in the summer Bisphosphonate therapy: Fosamax once a week that made her sick, was on Boniva x 5 years, Prolia 11/23/18 @[facility], 06/13/19 @ [facility] 01/02/2020, 07/07/2020, 01/05/21, 08/05/21, 02/10/22, 08/11/22, 02/09/2023, Prolia 08/10/23 @ [facility] Has a RT hip fracture, fell 07/2024. [...] without current pathological fracture, unspecified osteoporosis type ([facility]) M81.0 Calcium Calcium She is scheduled 08/15/24 for prolia at [facility], will reorder ca to see if we can get it within normal range prior to 08/15/24, otherwise will have to postpone prolia injection, discussed to f/U with pcp or dr raymundo in the the future since I will be leaving my current practice, she notes she will ask her PCP documented in this encounter [facility] Telephone encounter Note 07-30-2024 Telephone Encounter - ALMA Price - 07/30/2024 9:43 AM EST Note Date & Type Note Facility 07-30-2024 Telephone encounter Note Called and spoke to patient. States she would like the labs drawn at [facility]. She is due for prolia August 15. She is currently at [facility] until Monday (she fell and broke her hip and elbow). [facility] [employer] Work Phone: Note 07-30-2024 Telephone Encounter - ALMA Price - 07/30/2024 9:43 AM EST Note Date & Type Note Facility 07-30-2024 Miscellaneous Notes Formattin g of this note might be different from the original. Called and spoke to patient. States she would like the labs drawn at [facility]. She is due for prolia August 15. She is currently at [facility] until Monday (she fell and broke her hip and elbow). documented in this encounter [facility] Evaluation note Note Date & Type Note Facility Evaluation note No assessment information availa [facility] Work Phone: Evaluation note Note Date & Type Note Facility Evaluation note Diagnosis Osteoporosis without current pathological fracture, unspecified osteoporosis type (CMS/HCC)- Primary documented in this encounter [facility] Evaluation note Note Date & Type Note Facility Evaluation note Diagnosis Osteoporosis without current pathological fracture, unspecified osteoporosis type (CMS/HCC)- Primary documented in this encounter [facility] Healthcare Evaluation note Note Date & Type Note Facility Evaluation note Diagnosis Elevated alanine aminotransferase (ALT) level- Primary Mild protein-calorie malnutrition (CMS/HCC) Closed fracture of right hip, sequela Closed fracture of right elbow, sequela documented in this encounter [facility] Healthcare Summary Purpose Family History No Family History Records FoundNo Family History Records FoundNo Family History Records FoundNo Family History Records FoundNo Family History Records Found Advance Directives No Advanced Directives Records Found Advance Directive Response Recorded Date/ Time Advance Directives No June 10, 2019 5:42pm Additional Source Comments INFORMATION SOURCE (unrecogn ized section and content) DATE CREATED AUTHOR 02/16/2019 [facility] DATE CREATED AUTHOR AUTHOR'S ORGANIZ ATION 06/16/2021 [facility] DATE CREATED AUTHOR AUTHOR'S ORGANIZ ATION 08/07/2024 [facility] EPIC DATE CREATED AUTHOR AUTHOR'S ORGANIZ ATION 08/08/2024 [facility] DATE CREATED AUTHOR AUTHOR'S ORGANIZ ATION 08/17/2024 [facility] Care Teams (unrecognized sec tion and content) Team Status: Inactive Member Role Status Dates Tucker Hsu II MD Primary Care Provider Active Neeraj Stafford DO Attending Provider Active Team Status: Active Member Role Status Dates Tucker Hsu II MD Primary Care Provider Active Appointment Scheduler Relationship Specialty Start Date End Date Tucker Hsu MD [address] [place] [address] PCP - General Internal Medicine 11/23/22 Tucker Hsu MD [address] [place] [address] PCP - ACO Reach 07/09/23 Appointment Scheduler Relationship Specialty Start Date End Date Tucker Hsu MD [address] [place] [address] PCP - General Internal Medicine 11/23/22 Tucker Hsu MD [address] [place] [address] PCP - ACO Reach 07/09/23 Appointment Scheduler Relationship Specialty Start Date End Date Tucker Hsu MD [address] [place] [address] PCP - General Internal Medicine 11/23/22 Tucker Hsu MD [address] [place] [address] PCP - ACO Reach 07/09/23 Appointment Scheduler Relationship Specialty Start Date End Date Tucker Hsu MD [address] [place] [address] PCP - General Internal Medicine 11/23/22 Tucker Hsu MD [address] [place] [address] PCP - ACO Reach 07/09/23 Appointment Scheduler Relationship Specialty Start Date End Date Tucker Hsu MD [address] [place] [address] PCP - General Internal Medicine 11/23/22 Tucker Hsu MD [address] [facility] [address] [place] [address] PCP - ACO Reach 07/09/23 Goals (unrecognized section and content) Goals may be documented in a n alternate section Reason for Visit (unrecogniz ed section and content) Reason Comments Follow-up Reason Comments Follow-up Admitted 07/11/24 to [facility] dx: fall,right elbow fracture ( had ORIF right elbow) and right hip fracture discharged 07/14/24 to [facility] discharged home 08/02/24 FOR RECORDS PERTAINING [...] BE BASED ON THE PRIMARY CLINICAL RECORDS. [employer] provides no warranty or guarantee of the accuracy or completeness of information in this document.
== END 2024-07-29 10:31 | disposition home or self-care (01) ==
LOC: EC 08-21 14:11
PROVIDERS: PCP Internal Medicine; Visit Provider Orthopaedic Surgery
DX: S52.031D Displaced fracture of olecranon process with intraarticular extension of right ulna, subsequent encounter for closed fracture with routine healing (principal); W01.0XXD Fall on same level from slipping, tripping and stumbling without subsequent striking against object, subsequent encounter; Z98.890 Other specified postprocedural states; S32.491D Other specified fracture of right acetabulum, subsequent encounter for fracture with routine healing
CPT/HCPCS: 73080; 73502

== ENCOUNTER 2024-08-26 07:53 | Outpatient (OUT) | payer MEDICARE, OTHER, SELFPAY ==
--- NOTE | 2024-08-26 | XR_ITS ---
The [address] [address] Patient Name: LIZTEH DAY MRN: [id number] date: 1950 Sex: F Assigned Patient Location: Current Patient Location: Accession/Order Number: [id number] Exam Date: 08/26/2024 07:58 Report Date: 08/26/2024 17:49 At the request of: ALEXANDER CANADA Procedure: XR hip RT 2V w/ pelvis EXAM: XR hip RT 2V w/ pelvis HISTORY: RIGHT HIP AND PELVIS PAIN COMPARISON: 07/29/2024. FINDINGS: Single view of the pelvis and 2 views of the right hip were obtained. The pelvic ring appears intact. SI joints and hip joints appear symmetric. Prior vertebroplasty noted in the lower lumbar spine. Soft tissues are unremarkable. Dedicated images right hip demonstrates no acute fracture or dislocation. Joint spaces maintained. The articular surfaces appear smooth in contour. XR/XR hip RT 2V w/ pelvis IMPRESSION: No acute abnormality in the pelvis or right hip. Electronically authenticated by: ALEXANDER GARCIA Date: 08/26/2024 17:49
--- NOTE | 2024-08-26 | XR_ITS ---
The [address] [address] Patient Name: LIZETH DAY MRN: [id number] date: 1950 Sex: F Assigned Patient Location: Current Patient Location: Accession/Order Number: [id number] Exam Date: 08/26/2024 07:58 Report Date: 08/26/2024 16:27 At the request of: ALEXANDER CANADA Procedure: XR elbow RT min 3V EXAM: XR elbow RT min 3V HISTORY: RIGHT ELBOW PAIN COMPARISON: 07/29/2024. FINDINGS: 3 views of the right elbow were obtained. There are postsurgical findings of plate and screw fixation of the proximal ulna/olecranon, similar to prior. There is further blurring of the fracture line which remains partially visible. No change in alignment. No dislocation. Persistent joint effusion is noted. XR/XR elbow RT min 3V IMPRESSION: Healing proximal ulnar fracture status post ORIF. Joint effusion. Electronically authenticated by: ALEXANDER GARCIA Date: 08/26/2024 16:27
== END 2024-08-26 07:54 | disposition home or self-care (01) ==
PROVIDERS: PCP Internal Medicine; Visit Provider Orthopaedic Surgery
DX: S32.491D Other specified fracture of right acetabulum, subsequent encounter for fracture with routine healing (principal); S52.031D Displaced fracture of olecranon process with intraarticular extension of right ulna, subsequent encounter for closed fracture with routine healing
CPT/HCPCS: 73080; 73502

== ENCOUNTER 2024-09-23 09:55 | Outpatient (OUT) | payer MEDICARE, OTHER, SELFPAY ==
--- NOTE | 2024-09-23 | XR_ITS ---
The [address] [address] Patient Name: LIZETH DAY MRN: [id number] date: 1950 Sex: F Assigned Patient Location: Current Patient Location: Accession/Order Number: [id number] Exam Date: 09/23/2024 11:23 Report Date: 09/23/2024 11:25 At the request of: ALEXANDER CANADA MD Procedure: XR hip RT 2V w/ pelvis Right hip 2 views of the pelvis. Reason for exam: Follow-up fracture right acetabulum. COMPARISON: Right hip series 08/26/2024. FINDINGS: There appears be sclerosis involving the right acetabulum suggestive of healing response. No significant change in acetabular alignment when compared to the prior study. Mild degenerative changes of both hips. No hip fracture is noted. XR/XR hip RT 2V w/ pelvis IMPRESSION: Sclerosis is noted involving the right acetabulum suggestive of healing response. No significant change in alignment. Impression dictated by: Negro Lopez Jr., D.O.09/23/2024 11:25 AM Dictation Location: [place] [address] Electronically authenticated by: [id number] Y Date: 09/23/2024 11:25
--- NOTE | 2024-09-23 | XR_ITS ---
The [address] [address] Patient Name: LIZETH DAY MRN: [id number] date: 1950 Sex: F Assigned Patient Location: Current Patient Location: Accession/Order Number: [id number] Exam Date: 09/23/2024 12:29 Report Date: 09/23/2024 12:30 At the request of: ALEXANDER CANADA MD Procedure: XR elbow RT min 3V RIGHT ELBOW - 3 views CLINICAL HISTORY: S52.031a Closed displaced fracture of olecranon process COMPARISON: Right elbow 08/26/2024 FINDINGS: Mild posterior soft tissue swelling. No elbow joint effusion. No hardware complication. Olecranon fracture appears grossly unchanged alignment with fracture line less conspicuous suggestive of healing response. XR/XR elbow RT min 3V IMPRESSION: HEALING OLECRANON FRACTURE. NO HARDWARE COMPLICATION. Impression dictated by: Negro Lopez Jr., D.O.09/23/2024 12:30 PM Dictation Location: [place] [address] Electronically authenticated by: [id number] Y Date: 09/23/2024 12:30
== END 2024-09-23 09:56 | disposition home or self-care (01) ==
LOC: EC 09:55
PROVIDERS: PCP Internal Medicine; Visit Provider Orthopaedic Surgery
DX: S32.491D Other specified fracture of right acetabulum, subsequent encounter for fracture with routine healing (principal); S52.031D Displaced fracture of olecranon process with intraarticular extension of right ulna, subsequent encounter for closed fracture with routine healing
CPT/HCPCS: 73080; 73502

== ENCOUNTER 2024-10-21 10:27 | Outpatient (OUT) | payer MEDICARE, OTHER, SELFPAY ==
--- NOTE | 2024-10-21 | XR_ITS ---
The [address] [address] Patient Name: LIZETH DAY MRN: [id number] date: 1950 Sex: F Assigned Patient Location: Current Patient Location: Accession/Order Number: [id number] Exam Date: 10/21/2024 10:54 Report Date: 10/21/2024 10:59 At the request of: ALEXANDER CANADA MD Procedure: XR elbow RT min 3V RIGHT ELBOW - 4 VIEWS CLINICAL HISTORY: Follow-up fracture of olecranon process right ulna COMPARISON: 09/23/2024 AP, lateral and a single oblique view were obtained. There is osteopenia. There is redemonstration of a dorsal plate and screws along the proximal ulna. The hardware stable including the 5 - 6 mm gap between the proximal aspect of the plate and the olecranon. A nondisplaced fracture through the trochlear notch is again seen. No new fracture or dislocation is identified. No significant elbow effusion is present at this time. XR/XR elbow RT min 3V IMPRESSION: STABLE PROXIMAL ULNAR FRACTURE AND FIXATION HARDWARE. Impression dictated by: Sherine Alcala M.D.10/21/2024 10:59 AM Dictation Location: [place] [address] Electronically authenticated by: [id number] Y Date: 10/21/2024 10:59
== END 2024-10-21 10:28 | disposition home or self-care (01) ==
LOC: EC 10:28
PROVIDERS: PCP Internal Medicine; Visit Provider Orthopaedic Surgery
DX: S52.031D Displaced fracture of olecranon process with intraarticular extension of right ulna, subsequent encounter for closed fracture with routine healing (principal)
CPT/HCPCS: 73080